=== PATIENT | male | born 1940 | race Caucasian/White ===

== ENCOUNTER 2018-03-18 11:37 | Inpatient (IN) | payer MEDICARE, OTHER ==
[2018-03-18] MEDS ORDERED: ASPIRIN 81 MG TABLET, CHEWABLE PO ONE (12:16)
--- NOTE | 2018-03-18 12:21 | ER Document Report ---
ED General - General Stated Complaint: FALL/RIB PAIN Time Seen by Provider: 03/18/18 11:49 Mode of Arrival: Medic Information source: Patient, Office Notes: Patient presents as a transfer from his primary care provider's office. Patient went to follow-up regarding bronchitis for which he has been treated for for the past 2 weeks. Patient was noted to be in new onset A. fib. Patient does report some left-sided chest pain where he has overlying bruising. Patient states that he has fallen 10 times in the past 8 days. Patient does report nausea and vomiting 6 episodes today. Patient additionally reports left lower quadrant abdominal tenderness that started yesterday. Patient denies any fever or urinary symptoms. Patient denies any head injury or headache. Patient denies any loss of consciousness. Patient's notes from his doctor's office does report that he has had some depression symptoms despite being compliant with his antidepressants. Patient complains of shortness of breath and states that he feels like he is breathing much easier after he was given oxygen per EMS. Patient states that he does not normally wear oxygen. TRAVEL OUTSIDE OF THE [place] IN LAST 30 DAYS: No - HPI Onset: Other - 8 days Onset/Duration: Persistent Quality of pain: Achy Pain Level: 4 Associated symptoms: Chest pain, Nonproductive cough, Nausea, Vomiting, Shortness of breath. denies: Diarrhea, Fever, Headache Exacerbated by: Movement, Coughing, Deep breathing Relieved by: Denies Similar symptoms previously: Yes Recently seen / treated by doctor: Yes - Related Data Allergies/Adverse Reactions: No Known Allergies Allergy (Verified 08/18/12 10:14) Past Medical History - General Information source: Patient, Office - Social History Smoking Status: Current Every Day Smoker Frequency of alcohol use: None Drug Abuse: None Occupation: None Lives with: Spouse/Significant other Family History: Reviewed & Not Pertinent - Past Medical History Cardiac Medical History: Reports: Hx Hypercholesterolemia Denies: Hx Heart Attack, Hx Hypertension Pulmonary Medical History: Reports: Hx Bronchitis, Hx Pneumonia Denies: Hx Asthma Neurological Medical History: Reports: Other. Denies: Hx Cerebrovascular Accident, Hx Seizures GI Medical History: Reports: Hx Hiatal Hernia. Denies: Hx Hepatitis, Hx Ulcer Musculoskeletal Medical History: Reports Other - Chronic back pain Psychiatric Medical History: Reports: Hx Depression, Hx Post Traumatic Stress Disorder Infectious Medical History: Denies: Hx Hepatitis Past Surgical History: Reports: Hx Orthopedic Surgery. Denies: Hx Open Heart Surgery, Hx Pacemaker Review of Systems - Review of Systems Constitutional: Recent illness - Recently treated for pneumonia and then treated for bronchitis over the past 2 weeks. denies: Fever EENT: No symptoms reported Cardiovascular: Chest pain - The left-sided chest where he fell and has overlying bruising Respiratory: Cough, Hurts to breathe, Short of breath Gastrointestinal: Abdominal pain - Left lower quadrant, Vomiting Genitourinary: No symptoms reported. denies: Dysuria Male Genitourinary: No symptoms reported Musculoskeletal: No symptoms reported Skin: Change in color - Exam to the left chest wall Hematologic/Lymphatic: No symptoms reported Neurological/Psychological: No symptoms reported Physical Exam - Vital signs Vitals: Resp BP Pulse Ox 28 H 120/88 H 99 03/18/18 11:44 03/18/18 11:44 03/18/18 11:44 - General General appearance: Alert In distress: None - HEENT Head: Normocephalic, Atraumatic. No: Abrasions, Pina's sign, Ecchymosis, Racoon's eyes Eyes: Normal Conjunctiva: Normal Nasal: Normal Mouth/Lips: Normal Mucous membranes: Normal Neck: Normal, Supple. No: Lymphadenopathy - Respiratory Respiratory status: No respiratory distress Chest status: Tender, Ecchymosis - left anterior chest wall ecchymosis Breath sounds: Nonproductive cough, Rales Chest palpation: Tender, Ecchymosis - Cardiovascular Rhythm: Irregularly irregular Heart sounds: S1 appreciated, S2 appreciated - Abdominal Distension: No distension Bowel sounds: Normal Tenderness: Tender - LLQ Organomegaly: No organomegaly - Back Back: Normal - Extremities General upper extremity: Normal inspection, Normal ROM General lower extremity: Normal inspection, Normal ROM - Neurological Neuro grossly intact: Yes Cognition: Normal Melissa Coma Scale Eye Opening: Spontaneous Melissa Coma Scale Verbal: Oriented Melissa Coma Scale Motor: Obeys Commands Melissa Coma Scale Total: 15 - Psychological Associated symptoms: Anxious - Skin Skin Temperature: Warm Skin Moisture: Dry Skin Color: Ecchymosis - left chest wall Course - Re-evaluation Re-evalutation: 03/18/18 14:[address] Small regarding patient presentation and diagnostic evaluation, agrees with plan for CT imaging of the chest abdomen and pelvis for further evaluation. 03/18/18 17:[address] Small regarding patient's diagnostic test results. Recommends consultation with hospitalist for admission. Did speak with Dr. marcus to clarify results of CT scan. Dr. Marcus states that patient has old right rib fractures but no acute rib fractures. 03/18/18 17:[address] Barroso who agrees to evaluate patient for admission. - Vital Signs Vital signs: Temp Pulse Resp BP Pulse Ox 97.7 F 17 135/67 H 99 03/18/18 18:38 03/18/18 19:00 03/18/18 18:01 03/18/18 19:00 - Laboratory Result Diagrams: 03/18/18 11:52 03/18/18 11:52 Laboratory results interpreted by me: 03/18/18 03/18/18 03/18/18 11:52 11:52 11:52 WBC 10.6 H RBC 3.49 L Hgb 11.4 L Hct 33.1 L RDW 14.8 H Seg Neutrophils % 83.9 H Lymphocytes % 11.6 L Absolute Neutrophils 8.9 H APTT 37.2 H Chloride 109 H Total Bilirubin 1.6 H Direct Bilirubin 0.6 H NT-Pro-B Natriuret Pep Total Protein 5.9 L Albumin 3.4 L TSH Urine Protein Urine Ketones Urine Bilirubin Urine Ascorbic Acid 03/18/18 03/18/18 03/18/18 11:52 11:52 14:49 WBC RBC Hgb Hct RDW Seg Neutrophils % Lymphocytes % Absolute Neutrophils APTT Chloride Total Bilirubin Direct Bilirubin NT-Pro-B Natriuret Pep 2550 H Total Protein Albumin TSH 0.41 L Urine Protein 100 H Urine Ketones 20 H Urine Bilirubin SMALL H Urine Ascorbic Acid 40 H Labs- Entire Visit 03/18/18 03/18/18 03/18/18 11:52 11:52 11:52 WBC 10.6 H RBC 3.49 L Hgb 11.4 L Hct 33.1 L MCV 95 MCH 32.7 MCHC 34.6 RDW 14.8 H Plt Count 172 Seg Neutrophils % 83.9 H Lymphocytes % 11.6 L Monocytes % 3.9 Eosinophils % 0.4 Basophils % 0.2 Absolute Neutrophils 8.9 H Absolute Lymphocytes 1.2 Absolute Monocytes 0.4 Absolute Eosinophils 0.0 Absolute Basophils 0.0 PT 13.1 INR 0.94 APTT 37.2 H Sodium 141.3 Potassium 4.1 Chloride 109 H Carbon Dioxide 25 Anion Gap 7 BUN 16 Creatinine 0.78 Est GFR ( Amer) > 60 Est GFR (Non-Af Amer) > 60 Glucose 101 Calcium 9.1 Magnesium 2.3 Total Bilirubin 1.6 H Direct Bilirubin 0.6 H Neonat Total Bilirubin Not Reportable Neonat Direct Bilirubin Not Reportable Neonat Indirect Bili Not Reportable AST 22 ALT 30 Alkaline Phosphatase 78 Creatine Kinase 66 CK-MB (CK-2) Troponin I NT-Pro-B Natriuret Pep Total Protein 5.9 L Albumin 3.4 L TSH Free T4 Free T3 pg/mL Urine Color Urine Appearance Urine pH Ur Specific Mascot Urine Protein Urine Glucose (UA) Urine Ketones Urine Blood Urine Nitrite Urine Bilirubin Urine Urobilinogen Ur Leukocyte Esterase Urine WBC (Auto) Urine RBC (Auto) Urine Mucus (Auto) Urine Ascorbic Acid 03/18/18 03/18/18 03/18/18 11:52 11:52 11:52 WBC RBC Hgb Hct MCV MCH MCHC RDW Plt Count Seg Neutrophils % Lymphocytes % Monocytes % Eosinophils % Basophils % Absolute Neutrophils Absolute Lymphocytes Absolute Monocytes Absolute Eosinophils Absolute Basophils PT INR APTT Sodium Potassium Chloride Carbon Dioxide Anion Gap BUN Creatinine Est GFR ( Amer) Est GFR (Non-Af Amer) Glucose Calcium Magnesium Total Bilirubin Direct Bilirubin Neonat Total Bilirubin Neonat Direct Bilirubin Neonat Indirect Bili AST ALT Alkaline Phosphatase Creatine Kinase CK-MB (CK-2) 1.68 Troponin I < 0.012 NT-Pro-B Natriuret Pep 2550 H Total Protein Albumin TSH 0.41 L Free T4 1.30 Free T3 pg/mL 3.19 Urine Color Urine Appearance Urine pH Ur Specific Mascot Urine Protein Urine Glucose (UA) Urine Ketones Urine Blood Urine Nitrite Urine Bilirubin Urine Urobilinogen Ur Leukocyte Esterase Urine WBC (Auto) Urine RBC (Auto) Urine Mucus (Auto) Urine Ascorbic Acid 03/18/18 03/18/18 14:49 16:20 WBC RBC Hgb Hct MCV MCH MCHC RDW Plt Count Seg Neutrophils % Lymphocytes % Monocytes % Eosinophils % Basophils % Absolute Neutrophils Absolute Lymphocytes Absolute Monocytes Absolute Eosinophils Absolute Basophils PT INR APTT Sodium Potassium Chloride Carbon Dioxide Anion Gap BUN Creatinine Est GFR ( Amer) Est GFR (Non-Af Amer) Glucose Calcium Magnesium Total Bilirubin Direct Bilirubin Neonat Total Bilirubin Neonat Direct Bilirubin Neonat Indirect Bili AST ALT Alkaline Phosphatase Creatine Kinase CK-MB (CK-2) Troponin I < 0.012 NT-Pro-B Natriuret Pep Total Protein Albumin TSH Free T4 Free T3 pg/mL Urine Color BRIAN Urine Appearance SLIGHTLY-CLOUDY Urine pH 7.0 Ur Specific Mascot 1.028 Urine Protein 100 H Urine Glucose (UA) NEGATIVE Urine Ketones 20 H Urine Blood NEGATIVE Urine Nitrite NEGATIVE Urine Bilirubin SMALL H Urine Urobilinogen NEGATIVE Ur Leukocyte Esterase NEGATIVE Urine WBC (Auto) 0 Urine RBC (Auto) 1 Urine Mucus (Auto) MOD Urine Ascorbic Acid 40 H - Diagnostic Test Radiology reviewed: Reports reviewed Discharge - Discharge Clinical Impression: New onset a-fib, Pulmonary lesion Fall Qualifiers: Encounter type: initial encounter Qualified Code(s): W19.XXXA - Unspecified fall, initial encounter Chest wall contusion Qualifiers: Encounter type: initial encounter Laterality: left Qualified Code(s): S20.212A - Contusion of left front wall of thorax, initial encounter Condition: Fair Disposition: ADMITTED INPATIENT Admitting Provider: Hospitalist Unit Admitted: IMCU
[2018-03-18 12:46] LABS: INTERNATIONAL RATION (INR) 0.94; PROTHROMBIN TIME 13.1 SEC (11.4-15.4)
[2018-03-18 12:47] LABS: PARTIAL THROMBOPLASTIN TIME 37.2 SEC (23.5-35.8)
[2018-03-18 12:50] LABS: ABSOLUTE LYMPHOCYTES (AUTO) 1.2 10^3/uL (0.5-4.7); ABSOLUTE MONOCYTES (AUTO) 0.4 10^3/uL (0.1-1.4); ABSOLUTE NEUT (AUTO) 8.9 10^3/uL (1.7-8.2); BASOPHILS % (AUTO) 0.2 % (0-2); EOSINOPHILS % (AUTO) 0.4 % (0-6); HEMATOCRIT 33.1 % (37.9-51.0); HEMOGLOBIN 11.4 g/dL (13.5-17.0); LYMPHOCYTES % (AUTO) 11.6 % (13-45); MEAN CORPUSCULAR HEMOGLOBIN 32.7 pg (27.0-33.4); MEAN CORPUSCULAR HGB CONC 34.6 g/dL (32.0-36.0); MEAN CORPUSCULAR VOLUME 95 fl (80-97); MONOCYTES % (AUTO) 3.9 % (3-13); PLATELET COUNT 172 10^3/uL (150-450); RED BLOOD COUNT 3.49 10^6/uL (4.35-5.55); RED CELL DISTRIBUTION WIDTH 14.8 % (11.5-14.0); SEGMENTED NEUTROPHILS % (AUTO) 83.9 % (42-78); TOTAL CELLS COUNTED % (AUTO) 100 %; WHITE BLOOD COUNT 10.6 10^3/uL (4.0-10.5)
[2018-03-18 12:58] LABS: ALANINE AMINOTRANSFERASE 30 U/L (21-72); ALBUMIN 3.4 g/dL (3.5-5.0); ALKALINE PHOSPHATASE 78 U/L (38-126); ANION GAP 7 (5-19); ASPARTATE AMINO TRANSFERASE 22 U/L (17-59); BILIRUBIN,DIRECT 0.6 mg/dL (0.0-0.4); BILIRUBIN,TOTAL 1.6 mg/dL (0.2-1.3); BLOOD UREA NITROGEN 16 mg/dL (7-20); CALCIUM 9.1 mg/dL (8.4-10.2); CARBON DIOXIDE 25 mmol/L (22-30); CHLORIDE 109 mmol/L (98-107); CREATINE KINASE 66 U/L (55-170); GLUCOSE 101 mg/dL (75-110); POTASSIUM 4.1 mmol/L (3.6-5.0); SODIUM 141.3 mmol/L (137-145); TOTAL PROTEIN 5.9 g/dL (6.3-8.2)
[2018-03-18 13:10] LABS: CREATINE KINASE MB 1.68 ng/mL (<4.55); NT PRO BNP 2550 pg/mL (<450)
[2018-03-18 13:14] LABS: TROPONIN I < 0.012 ng/mL
--- NOTE | 2018-03-18 13:22 | RADIOLOGY REPORT (SQ) ---
EXAM DESCRIPTION: CHEST SINGLE VIEW COMPLETED DATE/TIME: 03/18/2018 1:06 pm REASON FOR STUDY: fall, cp COMPARISON: None. EXAM PARAMETERS: NUMBER OF VIEWS: One view. TECHNIQUE: Single frontal radiographic view of the chest acquired. RADIATION DOSE: NA LIMITATIONS: None. FINDINGS: LUNGS AND PLEURA: There is some asymmetric increased density in the right lung especially in the right lower lung field. Differential possibilities would include a patchy pneumonic infiltrat e or atelectatic changes. In light of the clinical history the possibility of a pulmonary contusion cannot be excluded. This could also be chronic in nature. No pleural effusions are identified. No pneumothorax is seen. MEDIASTINUM AND HILAR STRUCTURES: No masses. Contour normal. HEART AND VASCULAR STRUCTURES: Heart normal in size. Normal vasculature. BONES: No acute findings. HARDWARE: None in the chest. OTHER: No other significant finding. IMPRESSION: Asymmetric increased density in the right lung as noted above. Differential possibiliti es are as noted above. Other findings as noted above TECHNICAL DOCUMENTATION: JOB ID: [id number] [employer]- All Rights Reserved Reading location - IP/workstation name: [email or web address]
--- NOTE | 2018-03-18 13:23 | EKG REPORT ---
SEVERITY:- ABNORMAL ECG - ATRIAL FIBRILLATION MULTIFORM VENTRICULAR PREMATURE COMPLEXES : Confirmed by: Marco Antonio Rodriguez MD 18-Mar-2018 13:22:58
[2018-03-18] MEDS ORDERED: MORPHINE SULFATE 10 MG/ML INJ IV ONE (14:45)
[2018-03-18] MEDS ORDERED: CEFTRIAXONE INJ 1000 MG VIAL IV ONE (14:47)
--- NOTE | 2018-03-18 15:50 | RADIOLOGY REPORT (SQ) ---
EXAM DESCRIPTION: CT CHEST WITH COMPLETED DATE/TIME: 03/18/2018 3:26 pm REASON FOR STUDY: multiple falls, LLQ pain, L chest wall ecchymosis COMPARISON: Chest x-ray dated 03/18/2018 TECHNIQUE: CT scan of the chest performed using helical scanning technique with dynamic intravenous contrast injection. Images reviewed with lung, soft tissue and bone windows. Reconstructed coronal and sagittal MPR and MIP images reviewed. All images stored on PACS. All CT scanners at this facility use dose modulation, iterative reconstruction, and/or weight based d osing when appropriate to reduce radiation dose to as low as reasonably achievable (ALARA). [facility]: Dose Right [facility]: CareDose [facility]: Dose Right [facility]: Teradose 4D [facility]: Smart [employer] CONTRAST TYPE AND DOSE: 80 mL Omnipaque 350 RENAL FUNCTION: Creatinine 0.78 RADIATION DOSE: . LIMITATIONS: None. FINDINGS: LUNGS AND PLEURA: Fairly diffuse patchy and confluent airspace densities are identified th roughout the right lung which correlate with the chest x-ray findings. Similar changes are identifie d in the posterior sulcus on the left. Differential possibilities would include pulmonary edema vers us pulmonary hemorrhage. Diffuse pneumonic infiltrate cannot be completely excluded. No pleural eff usions are identified. No pneumothorax is seen HILAR AND MEDIASTINAL STRUCTURES: No identified masses or abnormal nodes. HEART AND VASCULAR STRUCTURES: No aneurysm or dissection. No central pulmonary emboli. No pericardi al effusion. HARDWARE: None in the chest. UPPER ABDOMEN: See results under abdominal CT scan THYROID AND OTHER SOFT TISSUES: No masses. No adenopathy. BONES: No acute fractures are identified. Couple right rib fractures are identified including an all ununited right rib fracture in the upper thorax posteriorly. OTHER: No other significant finding. IMPRESSION: Fairly diffuse patchy and confluent airspace densities are identified throughout the rig ht lung and in the posterior sulcus on the left as noted above. Differential possibilities would inc lude pulmonary edema versus pulmonary hemorrhage. The possibility of a developing ARDS type pattern cannot be excluded. Clinical correlation is recommended. Other findings as noted above. TECHNICAL DOCUMENTATION: JOB ID: [id number] Quality ID # [id number]: Final reports with documentation of one or more dose reduction techniques (e.g., Au tomated exposure control, adjustment of the mA and/or kV according to patient size, use of iterative reconstruction technique) 2010 [employer] All Rights Reserved Reading location - IP/workstation name: [email or web address]
--- NOTE | 2018-03-18 15:53 | RADIOLOGY REPORT (SQ) ---
EXAM DESCRIPTION: CT ABD/PELVIS WITH IV ONLY COMPLETED DATE/TIME: 03/18/2018 3:26 pm REASON FOR STUDY: multiple falls, LLQ pain, L chest wall ecchymosis COMPARISON: None. TECHNIQUE: CT scan of the abdomen and pelvis performed using helical scanning technique with dynamic intravenous contrast injection. No oral contrast. Images reviewed with lung, soft tissue, and bone windows. Reconstructed coronal and sagittal MPR images reviewed. Delayed images for evaluation of the urinary system also acquired. All images stored on PACS. All CT scanners at this facility use dose modulation, iterative reconstruction, and/or weight based d osing when appropriate to reduce radiation dose to as low as reasonably achievable (ALARA). [facility]: Dose Right [facility]: CareDose [facility]: Dose Right [facility]: Teradose 4D [facility]: [employer] CONTRAST TYPE AND DOSE: contrast/concentration: Isovue 350.00 mg/ml; Total Contrast Delivered: 89.0 ml; Total Saline Delivered: 70.0 ml RENAL FUNCTION: BUN 16 creatinine 0.8 RADIATION DOSE: CT Rad equipment meets quality standard of care and radiation dose reduction techniq ues were employed. CTDIvol: 11.0 - 15.7 mGy. DLP: 1693 mGy-cm.. LIMITATIONS: None. FINDINGS: LOWER CHEST: See separate report of the CT of the chest. LIVER: Normal size. No masses. No dilated ducts. SPLEEN: Normal size. No focal lesions. PANCREAS: No masses. No significant calcifications. No adjacent inflammation or peripancreatic fluid collections. Pancreatic duct not dilated. GALLBLADDER: No identified stones by CT criteria. No inflammatory changes to suggest cholecystitis. ADRENAL GLANDS: No significant masses or asymmetry. RIGHT KIDNEY AND URETER: No solid masses. No significant calcifications. No hydronephrosis or hyd roureter. LEFT KIDNEY AND URETER: No solid masses. Small nonobstructing middle calyceal calculus. No hydron ephrosis or hydroureter. AORTA AND VESSELS: No aneurysm. No dissection. Renal arteries, SMA, celiac without stenosis. RETROPERITONEUM: No retroperitoneal adenopathy, hemorrhage or masses. BOWEL AND PERITONEAL CAVITY: Mild diverticulosis with no acute inflammatory changes. APPENDIX: Not identified. PELVIS: No mass. No free fluid. Normal bladder. ABDOMINAL WALL: No masses. No hernias. BONES: Scoliosis. Degenerative disc changes. Anterolisthesis of L4 on L5. OTHER: No other significant finding. IMPRESSION: Mild diverticulosis coli. Osseous findings as described. No acute findings in the abdo men or pelvis. TECHNICAL DOCUMENTATION: JOB ID: [id number] Quality ID # [id number]: Final reports with documentation of one or more dose reduction techniques (e.g., Au tomated exposure control, adjustment of the mA and/or kV according to patient size, use of iterative reconstruction technique) 2010 [employer] All Rights Reserved Reading location - IP/workstation name: [email or web address]
[2018-03-18 15:54] LABS: FREE T3 3.19 pg/mL (2.77-5.27); FREE T4 (FREE THYROXINE) 1.3 ng/dL (0.78-2.19)
[2018-03-18 16:31] LABS: APPEARANCE,URINE SLIGHTLY-CLOUDY; BILIRUBIN,URINE SMALL (NEGATIVE); COLOR,URINE AMBER; GLUCOSE, URINE NEGATIVE (NEGATIVE); KETONES,URINE 20 mg/dL (NEGATIVE); LEUKOCYTE ESTERASE,URINE NEGATIVE (NEGATIVE); NITRITE,URINE NEGATIVE (NEGATIVE); PROTEIN,URINE 100 mg/dL (NEGATIVE); URINE SPECIFIC GRAVITY 1.028; UROBILINOGEN,URINE NEGATIVE mg/dL (<2.0)
--- NOTE | 2018-03-18 16:31 | PSYCHOLOGICAL NOTE ---
Psych Note - Psych Note Psych Note: Reason for Consult: depression Patient reports that he is doing well. He confirms he has had some depression. He reports he has diagnosis of PTSD. Patient reminisced on his time in [place] and disclosed events some of the events that resulted in his PTSD. HE reports his year he will be 52 years and disclosed how much his means to him. He reports he has been more depressed lately because he resent suffered to loss of his [id number] and his and surgery and during the recovery suffered a heart attack (she survived) and his own medical issues. He disclosed that while is has been depressed he has been more aggravated about his medical because he feels the doctors do not communicate and just run tests "and I never get anything...no results...no paperwork." He reports he has had multiple doctors and feels like they just keep doing the same things over again because they don't want to take the results from previous tests "and nothing is getting done...and they still have not told me anything." He confirms he has a loving family but requests no visitors; "I want to rest and when the doctor comes in, I want to be able to hear what they are saying...I don't want them to worry and fuss over me." Patient is alert and orientated to person, place, time and circumstance. Mood with euthymic with congruent affect. Patient denies suicidal and homicidal ideation. Delusions are absent and behaviours are congruent with an intact reality based presentation ie organized and linear thought processes. eye contact was well maintained. conversational speech was within normal rate, tone and prosody. Intellectual abilities appear to be average range. attention and concentration are good. insight, judgment and impulse control is good. 311 (F32.9) unspecified depressive disorder 309.81 (F43.10) posttraumatic stress disorder Impression/plan:Patient is cleared from acute psychiatric services. Patient disclosed situational depression surrounding his medical situation and the health of his . He reports he is more aggravated with doctors because of feeling that he is not getting information for tests and having multiple doctor changes and them having him retested. Patient reports he has a mental health provider with [facility] and has worked with them for a long time. Patient is recommenced to continue working with his outpatient provider. Dr. Bucio was consulted on the care and management of this patient; attending physicians is is in agreement with recommendations and disposition.
[2018-03-18] MEDS ORDERED: RINGERS SOLUTION,LACTATED 1,000 ML IV ONE (16:37)
[2018-03-18] MEDS ORDERED: LIDOCAINE 5% (700 MG) TRANSDERMAL ADH..PATCH TP ONE (17:20)
[2018-03-18] MEDS: RINGERS SOLUTION,LACTATED 1,000 ML IV PRN ×2 (17:27→22:32)
[2018-03-18] MEDS ORDERED: DIAZEPAM 5 MG TABLET PO PRN (17:51)
[2018-03-18] MEDS ORDERED: BUPROPION HCL 300 MG PO SCH (18:00)
[2018-03-18] MEDS ORDERED: CITALOPRAM HYDROBROMIDE 20 MG PO SCH (18:00)
[2018-03-18] MEDS: DOCUSATE SODIUM 100 MG CAPSULE PO SCH (18:15)
[2018-03-18] MEDS ORDERED: ALBUTEROL SULFATE 0.083% NEB 2.5 MG/3 ML AMPUL NEB PRN (18:23)
[2018-03-18] MEDS: TAMSULOSIN HCL 0.4 MG CAP.SR.24H PO SCH (18:26)
[2018-03-18] MEDS: FERROUS SULFATE 325 MG TABLET PO SCH (18:26)
--- NOTE | 2018-03-18 18:57 | PDOC H&P ---
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 He states that his balance has not been good for a long time, but that lately it has been worse. He also states that he has a recent history of bilateral pneumonia. He states that he thinks he has bronchitis now. He smokes "cigarillos". He states that he only smokes 2-3 of them a week. This week he states that he has fallen onto his left side twice both times falling on his right ribs. He complains of severe pleuritic chest pain and shortness of breath. He denies history of lung problems and states that he does not require oxygen at home. He also has had some problems with PTSD and depression. Lately the depression has been related to his medical problems and feeling that senior medical writer are not being honest with him. The patient' s speech is very tangential and it is very difficult to understand. In the ED the patient is found to have new onset of atrial fibrillation that is rate controlled. CTA of the chest abdomen and pelvis were performed that demonstrated patchy interstitial opacities on the right side of the chest that is described as being either pulmonary edema or pulmonary hemorrhage/contusion. The patient is currently saturating 97% on 3 L. He does not use O2 at home. Past Medical History Cardiac Medical History: Denies: Myocardial Infarction, Hypertension Pulmonary Medical History: Denies: Asthma Neurological Medical History: Reports: Other - cerebellar ataxia, peripheral neuropathy Denies: Seizures GI Medical History: Reports: Hiatal Hernia Denies: Hepatitis Musculoskeltal Medical History: Reports: Arthritis - Right sided TKA. Psychiatric Medical History: Reports: Depression, Post Traumatic Stress Disorder Hematology: Reports: Anemia - ON IRON Denies: Sickle Cell Disease Past Surgical History Past Surgical History: Denies: Pacemaker Social History Smoking Status: Current Some Day Smoker Past Social History Note: Pt states that he has not used alcohol in many years. He denies recreational drug use. Family History Family History: Reviewed & Not Pertinent Parental Family History Reviewed: Yes Children Family History Reviewed: Yes Sibling(s) Family History Reviewed.: Yes Medication/Allergy Allergies/Adverse Reactions: No Known Allergies Allergy (Verified 08/18/12 10:14) Review of Systems Constitutional: PRESENT: weakness. ABSENT: fever(s), night sweats, weight loss Eyes: ABSENT: visual disturbances Ears: ABSENT: hearing changes Nose, Mouth, and Throat: ABSENT: mouth pain, sore throat, vertigo Cardiovascular: PRESENT: chest pain - Left sided, pleuritic. Respiratory: PRESENT: dyspnea. ABSENT: cough, sputum Gastrointestinal: PRESENT: abdominal pain - left sided lower quadrant, left flank, left upper quadrant., nausea, vomiting Integumentary: PRESENT: other - Positive for ecchymoses over the left side of the chest and abdomen. Neurological: PRESENT: abnormal speech - chronic per patient, frequent falls - chronic dysequilibrium, paresthesias - chronic Psychiatric: PRESENT: depression. ABSENT: anxiety Physical Exam Vital Signs: Temp Pulse Resp BP Pulse Ox 98.4 F 17 122/62 99 03/18/18 11:49 03/18/18 15:01 03/18/18 15:01 03/18/18 15:01 Intake & Output 03/17/18 03/18/18 03/19/18 06:59 06:59 06:59 Weight 82.4 kg General appearance: PRESENT: cooperative, disheveled, mild distress - left sided chest pain, thin Head exam: PRESENT: atraumatic, normocephalic Eye exam: PRESENT: EOMI, PERRLA. ABSENT: conjunctival injection, scleral icterus Ear exam: PRESENT: normal external ear exam. ABSENT: bleeding, drainage Mouth exam: PRESENT: dry mucosa, neck supple, tongue midline Throat exam: ABSENT: tonsillar erythema, tonsillar exudate, tonsillogmegaly Neck exam: ABSENT: JVD, lymphadenopathy, tenderness, thyromegaly Respiratory exam: PRESENT: chest wall tenderness, unlabored. ABSENT: rales, rhonchi, wheezes Cardiovascular exam: PRESENT: irregular rhythm. ABSENT: gallop, rubs, systolic murmur Pulses: PRESENT: other - diminished distal pulses GI/Abdominal exam: PRESENT: normal bowel sounds, soft. ABSENT: distended, guarding, hernia, mass, organolmegaly, tenderness Extremities exam: ABSENT: clubbing, pedal edema, tenderness Musculoskeletal exam: PRESENT: normal inspection. ABSENT: deformity, dislocation, tenderness Neurological exam: PRESENT: alert, awake, oriented to person, oriented to place , oriented to time, oriented to situation, ataxia, CN II-XII grossly intact. ABSENT: motor sensory deficit Psychiatric exam: PRESENT: anxious, unusual affect Skin exam: PRESENT: dry, intact, warm Results Laboratory Results: 03/18/18 11:52 03/18/18 11:52 03/18/18 03/18/18 03/18/18 11:52 11:52 11:52 WBC 10.6 H RBC 3.49 L Hgb 11.4 L Hct 33.1 L MCV 95 MCH 32.7 MCHC 34.6 RDW 14.8 H Plt Count 172 Seg Neutrophils % 83.9 H Lymphocytes % 11.6 L Monocytes % 3.9 Eosinophils % 0.4 Basophils % 0.2 Absolute Neutrophils 8.9 H Absolute Lymphocytes 1.2 Absolute Monocytes 0.4 Absolute Eosinophils 0.0 Absolute Basophils 0.0 Sodium 141.3 Potassium 4.1 Chloride 109 H Carbon Dioxide 25 Anion Gap 7 BUN 16 Creatinine 0.78 Est GFR ( Amer) > 60 Est GFR (Non-Af Amer) > 60 Glucose 101 Calcium 9.1 Magnesium 2.3 Total Bilirubin 1.6 H AST 22 ALT 30 Alkaline Phosphatase 78 Total Protein 5.9 L Albumin 3.4 L TSH 0.41 L Free T4 Free T3 pg/mL Urine Color Urine Appearance Urine pH Ur Specific [place] Urine Protein Urine Glucose (UA) Urine Ketones Urine Blood Urine Nitrite Ur Leukocyte Esterase Urine WBC (Auto) Urine RBC (Auto) 03/18/18 03/18/18 11:52 14:49 WBC RBC Hgb Hct MCV MCH MCHC RDW Plt Count Seg Neutrophils % Lymphocytes % Monocytes % Eosinophils % Basophils % Absolute Neutrophils Absolute Lymphocytes Absolute Monocytes Absolute Eosinophils Absolute Basophils Sodium Potassium Chloride Carbon Dioxide Anion Gap BUN Creatinine Est GFR ( Amer) Est GFR (Non-Af Amer) Glucose Calcium Magnesium Total Bilirubin AST ALT Alkaline Phosphatase Total Protein Albumin TSH Free T4 1.30 Free T3 pg/mL 3.19 Urine Color BRIAN Urine Appearance SLIGHTLY-CLOUDY Urine pH 7.0 Ur Specific [place] 1.028 Urine Protein 100 H Urine Glucose (UA) NEGATIVE Urine Ketones 20 H Urine Blood NEGATIVE Urine Nitrite NEGATIVE Ur Leukocyte Esterase NEGATIVE Urine WBC (Auto) 0 Urine RBC (Auto) 1 03/18/18 03/18/18 03/18/18 11:52 11:52 16:20 Creatine Kinase 66 CK-MB (CK-2) 1.68 Troponin I < 0.012 < 0.012 NT-Pro-B Natriuret Pep 2550 H 03/18/18 03/18/18 03/18/18 11:52 11:52 11:52 WBC 10.6 H RBC 3.49 L Hgb 11.4 L Hct 33.1 L MCV 95 MCH 32.7 MCHC 34.6 RDW 14.8 H Plt Count 172 Seg Neutrophils % 83.9 H Lymphocytes % 11.6 L Monocytes % 3.9 Eosinophils % 0.4 Basophils % 0.2 Absolute Neutrophils 8.9 H Absolute Lymphocytes 1.2 Absolute Monocytes 0.4 Absolute Eosinophils 0.0 Absolute Basophils 0.0 PT 13.1 INR 0.94 APTT 37.2 H Sodium 141.3 Potassium 4.1 Chloride 109 H Carbon Dioxide 25 Anion Gap 7 BUN 16 Creatinine 0.78 Est GFR (Non-Af Amer) > 60 Glucose 101 Calcium 9.1 Magnesium 2.3 Total Bilirubin 1.6 H Direct Bilirubin 0.6 H AST 22 ALT 30 Alkaline Phosphatase 78 Creatine Kinase 66 CK-MB (CK-2) Troponin I NT-Pro-B Natriuret Pep Total Protein 5.9 L Albumin 3.4 L TSH Free T4 Free T3 pg/mL Urine Color Urine Appearance Urine pH Ur Specific [place] Urine Protein Urine Glucose (UA) Urine Ketones Urine Blood Urine Nitrite Urine Bilirubin Urine Urobilinogen Ur Leukocyte Esterase Urine WBC (Auto) Urine RBC (Auto) Urine Mucus (Auto) Urine Ascorbic Acid 03/18/18 03/18/18 03/18/18 11:52 11:52 11:52 WBC RBC Hgb Hct MCV MCH MCHC RDW Plt Count Seg Neutrophils % Lymphocytes % Monocytes % Eosinophils % Basophils % Absolute Neutrophils Absolute Lymphocytes Absolute Monocytes Absolute Eosinophils Absolute Basophils PT INR APTT Sodium Potassium Chloride Carbon Dioxide Anion Gap BUN Creatinine Est GFR (Non-Af Amer) Glucose Calcium Magnesium Total Bilirubin Direct Bilirubin AST ALT Alkaline Phosphatase Creatine Kinase CK-MB (CK-2) 1.68 Troponin I < 0.012 NT-Pro-B Natriuret Pep 2550 H Total Protein Albumin TSH 0.41 L Free T4 1.30 Free T3 pg/mL 3.19 Urine Color Urine Appearance Urine pH Ur Specific [place] Urine Protein Urine Glucose (UA) Urine Ketones Urine Blood Urine Nitrite Urine Bilirubin Urine Urobilinogen Ur Leukocyte Esterase Urine WBC (Auto) Urine RBC (Auto) Urine Mucus (Auto) Urine Ascorbic Acid 03/18/18 03/18/18 14:49 16:20 WBC RBC Hgb Hct MCV MCH MCHC RDW Plt Count Seg Neutrophils % Lymphocytes % Monocytes % Eosinophils % Basophils % Absolute Neutrophils Absolute Lymphocytes Absolute Monocytes Absolute Eosinophils Absolute Basophils PT INR APTT Sodium Potassium Chloride Carbon Dioxide Anion Gap BUN Creatinine Est GFR (Non-Af Amer) Glucose Calcium Magnesium Total Bilirubin Direct Bilirubin AST ALT Alkaline Phosphatase Creatine Kinase CK-MB (CK-2) Troponin I < 0.012 NT-Pro-B Natriuret Pep Total Protein Albumin TSH Free T4 Free T3 pg/mL Urine Color BRIAN Urine Appearance SLIGHTLY-CLOUDY Urine pH 7.0 Ur Specific [place] 1.028 Urine Protein 100 H Urine Glucose (UA) NEGATIVE Urine Ketones 20 H Urine Blood NEGATIVE Urine Nitrite NEGATIVE Urine Bilirubin SMALL H Urine Urobilinogen NEGATIVE Ur Leukocyte Esterase NEGATIVE Urine WBC (Auto) 0 Urine RBC (Auto) 1 Urine Mucus (Auto) MOD Urine Ascorbic Acid 40 H Impressions: Chest X-Ray 03/18/18 12:17 IMPRESSION: Asymmetric increased density in the right lung as noted above. Differential possibilities are as noted above. Other findings as noted above Abdomen/Pelvis CT 03/18/18 14:44 IMPRESSION: Mild diverticulosis coli. Osseous findings as described. No acute findings in the abdomen or pelvis. Chest CT 03/18/18 14:44 IMPRESSION: Fairly diffuse patchy and confluent airspace densities are identified throughout the right lung and in the posterior sulcus on the left as noted above. Differential possibilities would include pulmonary edema versus pulmonary hemorrhage. The possibility of a developing ARDS type pattern cannot be excluded. Clinical correlation is recommended. Other findings as noted above. Assessment & Plan - Diagnosis (1) Chest wall contusion Qualifiers: Encounter type: initial encounter Laterality: left Qualified Code(s): S20.212A - Contusion of left front wall of thorax, initial encounter (2) Fall Qualifiers: Encounter type: initial encounter Qualified Code(s): W19.XXXA - Unspecified fall, initial encounter (3) New onset a-fib Is this a current diagnosis for this admission?: Yes (4) Pulmonary lesion Is this a current diagnosis for this admission?: Yes (6) Peripheral neuropathy Is this a current diagnosis for this admission?: Yes - Time Time Spent: 50 to 70 Minutes Medications reviewed and adjusted accordingly: Yes - Inpatient Certification Based on my medical assessment, after consideration of the patient's comorbidities, presenting symptoms, or acuity I expect that the services needed warrant INPATIENT care.: Yes I certify that my determination is in accordance with my understanding of Medicare's requirements for reasonable and necessary INPATIENT services [42 CFR 412.3e].: Yes Medical Necessity: Significant Comorbidiites Make Outpatient Treatment Too Risky , Need Close Monitoring Due to Risk of Patient Decompensation, Risk of Complication if Not Cared For in Hospital - Plan Summary Plan Summary: The patient will be admitted to a telemetry bed. He is in atrial fibrillation, but his rate is controlled. He is not currently a candidate for anticoagulation given the risk of pulmonary hemorrhage/contusion and his frequent falls. antithrombotics and anticoagulants will be avoided. The patient will have prn nebulizer treatment, pain control, serial CBC's and pulmonary consult. He will be continued on his home medications as possible. Once his respiratory status is stable I will consult PT/OT to evaluate him. I feel that this patient will likely not be able to return to his home situation at the end of this inpatient stay.
[2018-03-18 20:06] LABS: ABSOLUTE EOSINOPHILS # (AUTO) 0.1 10^3/uL (0.0-0.6); ABSOLUTE LYMPHOCYTES (AUTO) 1.7 10^3/uL (0.5-4.7); ABSOLUTE MONOCYTES (AUTO) 0.4 10^3/uL (0.1-1.4); ABSOLUTE NEUT (AUTO) 6.9 10^3/uL (1.7-8.2); BASOPHILS % (AUTO) 0.2 % (0-2); EOSINOPHILS % (AUTO) 1.5 % (0-6); HEMOGLOBIN 11.6 g/dL (13.5-17.0); LYMPHOCYTES % (AUTO) 18.6 % (13-45); MEAN CORPUSCULAR HEMOGLOBIN 32.7 pg (27.0-33.4); MEAN CORPUSCULAR VOLUME 96 fl (80-97); MONOCYTES % (AUTO) 4.3 % (3-13); PLATELET COUNT 181 10^3/uL (150-450); RED BLOOD COUNT 3.54 10^6/uL (4.35-5.55); RED CELL DISTRIBUTION WIDTH 14.7 % (11.5-14.0); SEGMENTED NEUTROPHILS % (AUTO) 75.4 % (42-78); TOTAL CELLS COUNTED % (AUTO) 100 %; WHITE BLOOD COUNT 9.1 10^3/uL (4.0-10.5)
[2018-03-18] MEDS ORDERED: ARIPIPRAZOLE 20 MG PO SCH (22:00)
[2018-03-18] MEDS: SIMVASTATIN 10 MG TABLET PO SCH (22:28)
[2018-03-18] MEDS: ARIPIPRAZOLE 5 MG TABLET PO SCH (22:29)
[2018-03-18] MEDS: BUPROPION HCL 75 MG TABLET PO SCH (22:29)
[2018-03-18] MEDS ORDERED: FLUTICASONE/SALMETEROL DISKUS 250-50 MCG/DOSE IH ONE (22:53)
[2018-03-18] MEDS: FLUTICASONE/SALMETEROL DISKUS 250-50 MCG/DOSE IH SCH (23:04)
[2018-03-18] MEDS: MORPHINE SULFATE 10 MG/ML INJ IV PRN (23:12)
[2018-03-19 05:23] LABS: ABSOLUTE EOSINOPHILS # (AUTO) 0.1 10^3/uL (0.0-0.6); ABSOLUTE LYMPHOCYTES (AUTO) 1.4 10^3/uL (0.5-4.7); ABSOLUTE MONOCYTES (AUTO) 0.5 10^3/uL (0.1-1.4); ABSOLUTE NEUT (AUTO) 4.6 10^3/uL (1.7-8.2); BASOPHILS % (AUTO) 0.2 % (0-2); EOSINOPHILS % (AUTO) 1.7 % (0-6); HEMATOCRIT 28.3 % (37.9-51.0); HEMOGLOBIN 9.9 g/dL (13.5-17.0); LYMPHOCYTES % (AUTO) 20.8 % (13-45); MEAN CORPUSCULAR HEMOGLOBIN 33.2 pg (27.0-33.4); MEAN CORPUSCULAR VOLUME 95 fl (80-97); MONOCYTES % (AUTO) 7.9 % (3-13); PLATELET COUNT 139 10^3/uL (150-450); RED BLOOD COUNT 2.98 10^6/uL (4.35-5.55); RED CELL DISTRIBUTION WIDTH 14.4 % (11.5-14.0); SEGMENTED NEUTROPHILS % (AUTO) 69.4 % (42-78); TOTAL CELLS COUNTED % (AUTO) 100 %; WHITE BLOOD COUNT 6.6 10^3/uL (4.0-10.5)
[2018-03-19 05:34] LABS: INTERNATIONAL RATION (INR) 0.97; PROTHROMBIN TIME 13.4 SEC (11.4-15.4)
[2018-03-19 05:50] LABS: ALANINE AMINOTRANSFERASE 31 U/L (21-72); ALKALINE PHOSPHATASE 71 U/L (38-126); ANION GAP 6 (5-19); ASPARTATE AMINO TRANSFERASE 20 U/L (17-59); BILIRUBIN,DIRECT 0.3 mg/dL (0.0-0.4); BILIRUBIN,TOTAL 0.9 mg/dL (0.2-1.3); BLOOD UREA NITROGEN 15 mg/dL (7-20); CALCIUM 8.6 mg/dL (8.4-10.2); CARBON DIOXIDE 26 mmol/L (22-30); CHLORIDE 109 mmol/L (98-107); CREATINE KINASE 71 U/L (55-170); GLUCOSE 98 mg/dL (75-110); POTASSIUM 4.1 mmol/L (3.6-5.0); SODIUM 140.5 mmol/L (137-145); TOTAL PROTEIN 5.6 g/dL (6.3-8.2)
[2018-03-19 05:54] LABS: NT PRO BNP 1700 pg/mL (<450)
[2018-03-19 05:59] LABS: TROPONIN I < 0.012 ng/mL
[2018-03-19] MEDS: CITALOPRAM HYDROBROMIDE 20 MG TABLET PO SCH (09:12)
[2018-03-19] MEDS: BUPROPION HCL 75 MG TABLET PO SCH ×2 (09:12→21:37)
[2018-03-19] MEDS: DOCUSATE SODIUM 100 MG CAPSULE PO SCH ×2 (09:12→17:22)
[2018-03-19] MEDS: FLUTICASONE/SALMETEROL DISKUS 250-50 MCG/DOSE IH SCH ×2 (09:13→21:39)
[2018-03-19] MEDS: MORPHINE SULFATE 10 MG/ML INJ IV PRN (09:13)
[2018-03-19] MEDS: FERROUS SULFATE 325 MG TABLET PO SCH (09:13)
[2018-03-19] MEDS: TAMSULOSIN HCL 0.4 MG CAP.SR.24H PO SCH (09:13)
--- NOTE | 2018-03-19 10:15 | EKG REPORT ---
SEVERITY:- ABNORMAL ECG - ATRIAL FIBRILLATION BORDERLINE RIGHT AXIS DEVIATION LOW VOLTAGE IN FRONTAL LEADS : Confirmed by: Marco Antonio Rodriguez MD 19-Mar-2018 10:14:49
[2018-03-19 13:27] LABS: ABSOLUTE EOSINOPHILS # (AUTO) 0.1 10^3/uL (0.0-0.6); ABSOLUTE MONOCYTES (AUTO) 0.4 10^3/uL (0.1-1.4); ABSOLUTE NEUT (AUTO) 5.4 10^3/uL (1.7-8.2); BASOPHILS % (AUTO) 0.1 % (0-2); EOSINOPHILS % (AUTO) 1.7 % (0-6); HEMATOCRIT 29.1 % (37.9-51.0); HEMOGLOBIN 10.1 g/dL (13.5-17.0); LYMPHOCYTES % (AUTO) 13.8 % (13-45); MEAN CORPUSCULAR HEMOGLOBIN 33.1 pg (27.0-33.4); MEAN CORPUSCULAR HGB CONC 34.8 g/dL (32.0-36.0); MEAN CORPUSCULAR VOLUME 95 fl (80-97); MONOCYTES % (AUTO) 6.4 % (3-13); PLATELET COUNT 159 10^3/uL (150-450); RED BLOOD COUNT 3.06 10^6/uL (4.35-5.55); RED CELL DISTRIBUTION WIDTH 14.5 % (11.5-14.0); TOTAL CELLS COUNTED % (AUTO) 100 %; WHITE BLOOD COUNT 6.9 10^3/uL (4.0-10.5)
[2018-03-19] MEDS: ONDANSETRON HCL INJ/PF 4 MG/2 ML SDV IV PRN ×2 (15:17→21:36)
[2018-03-19] MEDS: RINGERS SOLUTION,LACTATED 1,000 ML IV PRN (16:05)
--- NOTE | 2018-03-19 17:26 | PDOC PROGRESS REPORT ---
Subjective Progress Note for:: 03/19/18 Subjective:: The patient is resting comfortably. No new complaints. Reason For Visit: PULMONARY HEMORRHAGE,FALLS,RECENT DIAGNOSIS OF Physical Exam Vital Signs: Temp Pulse Resp BP Pulse Ox 98.6 F 85 20 157/80 H 96 03/19/18 15:06 03/19/18 15:06 03/19/18 15:06 03/19/18 15:06 03/19/18 15:06 Intake & Output 03/18/18 03/19/18 03/20/18 06:59 06:59 06:59 Intake Total 1092 1275 Output Total 250 Balance 842 1275 Weight 87.3 kg General appearance: PRESENT: no acute distress, cooperative Respiratory exam: PRESENT: other - No increased work of breathing.. ABSENT: rales, rhonchi, wheezes Cardiovascular exam: PRESENT: RRR, other - No lateral PMI. No thrills.. ABSENT : gallop, rubs, systolic murmur Pulses: PRESENT: other - Diminished distal pulses. GI/Abdominal exam: PRESENT: normal bowel sounds, soft. ABSENT: hernia, mass, organolmegaly, tenderness Extremities exam: PRESENT: pedal edema. ABSENT: clubbing, tenderness Musculoskeletal exam: PRESENT: normal inspection. ABSENT: deformity, tenderness Neurological exam: PRESENT: alert, awake, oriented to person, oriented to place , oriented to time, oriented to situation, CN II-XII grossly intact. ABSENT: motor sensory deficit Skin exam: PRESENT: dry, intact, warm Results Laboratory Results: 03/19/18 13:09 03/19/18 04:52 03/18/18 03/19/18 03/19/18 19:30 04:52 04:52 WBC 9.1 6.6 RBC 3.54 L 2.98 L Hgb 11.6 L 9.9 L Hct 34.0 L 28.3 L MCV 96 95 MCH 32.7 33.2 MCHC 34.0 35.0 RDW 14.7 H 14.4 H Plt Count 181 139 L Seg Neutrophils % 75.4 69.4 Lymphocytes % 18.6 20.8 Monocytes % 4.3 7.9 Eosinophils % 1.5 1.7 Basophils % 0.2 0.2 Absolute Neutrophils 6.9 4.6 Absolute Lymphocytes 1.7 1.4 Absolute Monocytes 0.4 0.5 Absolute Eosinophils 0.1 0.1 Absolute Basophils 0.0 0.0 Sodium 140.5 Potassium 4.1 Chloride 109 H Carbon Dioxide 26 Anion Gap 6 BUN 15 Creatinine 0.72 Est GFR ( Amer) > 60 Est GFR (Non-Af Amer) > 60 Glucose 98 Calcium 8.6 Magnesium 2.1 Total Bilirubin 0.9 AST 20 ALT 31 Alkaline Phosphatase 71 Total Protein 5.6 L Albumin 3.0 L 03/19/18 13:09 WBC 6.9 RBC 3.06 L Hgb 10.1 L Hct 29.1 L MCV 95 MCH 33.1 MCHC 34.8 RDW 14.5 H Plt Count 159 Seg Neutrophils % 78.0 Lymphocytes % 13.8 Monocytes % 6.4 Eosinophils % 1.7 Basophils % 0.1 Absolute Neutrophils 5.4 Absolute Lymphocytes 1.0 Absolute Monocytes 0.4 Absolute Eosinophils 0.1 Absolute Basophils 0.0 Sodium Potassium Chloride Carbon Dioxide Anion Gap BUN Creatinine Est GFR ( Amer) Est GFR (Non-Af Amer) Glucose Calcium Magnesium Total Bilirubin AST ALT Alkaline Phosphatase Total Protein Albumin 03/18/18 03/18/18 03/19/18 19:30 23:49 04:52 Creatine Kinase Troponin I < 0.012 < 0.012 < 0.012 NT-Pro-B Natriuret Pep 1700 H 03/19/18 04:52 Creatine Kinase 71 Troponin I NT-Pro-B Natriuret Pep Impressions: Chest X-Ray 03/18/18 12:17 IMPRESSION: Asymmetric increased density in the right lung as noted above. Differential possibilities are as noted above. Other findings as noted above Abdomen/Pelvis CT 03/18/18 14:44 IMPRESSION: Mild diverticulosis coli. Osseous findings as described. No acute findings in the abdomen or pelvis. Chest CT 03/18/18 14:44 IMPRESSION: Fairly diffuse patchy and confluent airspace densities are identified throughout the right lung and in the posterior sulcus on the left as noted above. Differential possibilities would include pulmonary edema versus pulmonary hemorrhage. The possibility of a developing ARDS type pattern cannot be excluded. Clinical correlation is recommended. Other findings as noted above. Assessment & Plan - Diagnosis (1) Chest wall contusion Qualifiers: Encounter type: initial encounter Laterality: left Qualified Code(s): S20.212A - Contusion of left front wall of thorax, initial encounter Is this a current diagnosis for this admission?: Yes Plan: Avoid anticoagulants and antithrombotics. Pain control and oxygen supplementation. (2) Fall Qualifiers: Encounter type: initial encounter Qualified Code(s): W19.XXXA - Unspecified fall, initial encounter Is this a current diagnosis for this admission?: Yes Plan: The patient will need PT/OT and probably placement at discharged. (3) New onset a-fib Is this a current diagnosis for this admission?: Yes Plan: The rate is controlled. Due to the patient's likely pulmonary hemorrhage vs contusion, and his recent history of frequent falls the patient will not be started on anticoagulation. (4) Cerebellar ataxia Is this a current diagnosis for this admission?: Yes Plan: Likely due to history of severe alcohol abuse. (5) Peripheral neuropathy Is this a current diagnosis for this admission?: Yes (6) Rib fractures Qualifiers: Rib fracture type: multiple ribs Fracture type: closed Is this a current diagnosis for this admission?: Yes Plan: Pain control. Incentive spirometry. - Time Time Spent with patient: 25-34 minutes Medications reviewed and adjusted accordingly: Yes
[2018-03-19] MEDS ORDERED: (PENDING PHARMACY ID) (Oxycodone Hcl/Acetaminophen [Percocet 10-325 Mg Tablet] 1 EACH) PO PRN (18:50)
[2018-03-19] MEDS ORDERED: (PENDING PHARMACY ID) (Mirabegron [Myrbetriq] 50 MG) PO SCH (19:00)
[2018-03-19 19:49] LABS: ABSOLUTE EOSINOPHILS # (AUTO) 0.1 10^3/uL (0.0-0.6); ABSOLUTE LYMPHOCYTES (AUTO) 1.2 10^3/uL (0.5-4.7); ABSOLUTE MONOCYTES (AUTO) 0.5 10^3/uL (0.1-1.4); ABSOLUTE NEUT (AUTO) 4.4 10^3/uL (1.7-8.2); BASOPHILS % (AUTO) 0.3 % (0-2); EOSINOPHILS % (AUTO) 1.3 % (0-6); HEMATOCRIT 28.2 % (37.9-51.0); HEMOGLOBIN 9.7 g/dL (13.5-17.0); LYMPHOCYTES % (AUTO) 18.8 % (13-45); MEAN CORPUSCULAR HEMOGLOBIN 32.8 pg (27.0-33.4); MEAN CORPUSCULAR HGB CONC 34.3 g/dL (32.0-36.0); MEAN CORPUSCULAR VOLUME 96 fl (80-97); MONOCYTES % (AUTO) 7.6 % (3-13); PLATELET COUNT 150 10^3/uL (150-450); RED BLOOD COUNT 2.95 10^6/uL (4.35-5.55); RED CELL DISTRIBUTION WIDTH 14.3 % (11.5-14.0); TOTAL CELLS COUNTED % (AUTO) 100 %; WHITE BLOOD COUNT 6.1 10^3/uL (4.0-10.5)
[2018-03-19] MEDS: OXYCODONE-ACETAMINOPHEN 5-325 MG TABLET PO PRN (20:41)
[2018-03-19] MEDS: GABAPENTIN 300 MG CAPSULE PO SCH (21:39)
[2018-03-19] MEDS: SIMVASTATIN 10 MG TABLET PO SCH (21:39)
[2018-03-19] MEDS: ASCORBIC ACID 500 MG TABLET PO SCH (21:39)
[2018-03-19] MEDS: ARIPIPRAZOLE 5 MG TABLET PO SCH (21:40)
[2018-03-19] MEDS ORDERED: FLUTICASONE/SALMETEROL DISKUS 250-50 MCG/DOSE IH SCH (22:00)
[2018-03-20 04:32] LABS: ABSOLUTE EOSINOPHILS # (AUTO) 0.1 10^3/uL (0.0-0.6); ABSOLUTE LYMPHOCYTES (AUTO) 1.8 10^3/uL (0.5-4.7); ABSOLUTE MONOCYTES (AUTO) 0.5 10^3/uL (0.1-1.4); ABSOLUTE NEUT (AUTO) 2.9 10^3/uL (1.7-8.2); BASOPHILS % (AUTO) 0.6 % (0-2); EOSINOPHILS % (AUTO) 2.5 % (0-6); HEMATOCRIT 27.6 % (37.9-51.0); HEMOGLOBIN 9.5 g/dL (13.5-17.0); MEAN CORPUSCULAR HEMOGLOBIN 32.7 pg (27.0-33.4); MEAN CORPUSCULAR HGB CONC 34.4 g/dL (32.0-36.0); MEAN CORPUSCULAR VOLUME 95 fl (80-97); MONOCYTES % (AUTO) 9.8 % (3-13); PLATELET COUNT 143 10^3/uL (150-450); RED CELL DISTRIBUTION WIDTH 14.6 % (11.5-14.0); SEGMENTED NEUTROPHILS % (AUTO) 53.1 % (42-78); TOTAL CELLS COUNTED % (AUTO) 100 %; WHITE BLOOD COUNT 5.4 10^3/uL (4.0-10.5)
[2018-03-20 04:52] LABS: ANION GAP 8 (5-19); BLOOD UREA NITROGEN 12 mg/dL (7-20); CALCIUM 8.5 mg/dL (8.4-10.2); CARBON DIOXIDE 25 mmol/L (22-30); CHLORIDE 108 mmol/L (98-107); GLUCOSE 83 mg/dL (75-110); POTASSIUM 3.7 mmol/L (3.6-5.0); SODIUM 141.2 mmol/L (137-145)
[2018-03-20] MEDS: GABAPENTIN 300 MG CAPSULE PO SCH ×3 (05:33→21:09)
[2018-03-20] MEDS: LANSOPRAZOLE 15 MG TAB.RAP.DR PO SCH (05:33)
[2018-03-20] MEDS: OXYCODONE-ACETAMINOPHEN 5-325 MG TABLET PO PRN ×3 (05:37→21:58)
--- NOTE | 2018-03-20 08:27 | RADIOLOGY REPORT (SQ) ---
EXAM DESCRIPTION: CHEST SINGLE VIEW COMPLETED DATE/TIME: 03/20/2018 8:07 am REASON FOR STUDY: pulmonary edema vs pulmon hemorrhage COMPARISON: 03/18/2018. EXAM PARAMETERS: NUMBER OF VIEWS: One view. TECHNIQUE: Single frontal radiographic view of the chest acquired. RADIATION DOSE: NA LIMITATIONS: None. FINDINGS: LUNGS AND PLEURA: There are persistent interstitial infiltrates throughout the right lung and at the left lung base. MEDIASTINUM AND HILAR STRUCTURES: No masses. Contour normal. HEART AND VASCULAR STRUCTURES: The heart is borderline in size with uncoiling thoracic aorta. BONES: No acute findings. HARDWARE: None in the chest. OTHER: Chest leads in place. IMPRESSION: No significant change in diffuse interstitial infiltrate throughout the right lung and a t the left lung base. TECHNICAL DOCUMENTATION: JOB ID: [id number] [employer]- All Rights Reserved Reading location - IP/workstation name: [email or web address]
[2018-03-20] MEDS: TAMSULOSIN HCL 0.4 MG CAP.SR.24H PO SCH (09:06)
[2018-03-20] MEDS: FERROUS SULFATE 325 MG TABLET PO SCH (09:06)
[2018-03-20] MEDS: ESCITALOPRAM OXALATE 10 MG TABLET PO SCH (09:06)
[2018-03-20] MEDS: ASCORBIC ACID 500 MG TABLET PO SCH ×2 (09:06→21:10)
[2018-03-20] MEDS: CITALOPRAM HYDROBROMIDE 20 MG TABLET PO SCH (09:06)
[2018-03-20] MEDS: ASPIRIN 81 MG TABLET, ENT COATED PO SCH (09:06)
[2018-03-20] MEDS: MULTIVITAMIN TABLET PO SCH (09:06)
[2018-03-20] MEDS: FLUTICASONE/SALMETEROL DISKUS 250-50 MCG/DOSE IH SCH ×2 (09:07→21:09)
[2018-03-20] MEDS: DOCUSATE SODIUM 100 MG CAPSULE PO SCH ×2 (09:07→17:43)
[2018-03-20] MEDS: BUPROPION HCL 75 MG TABLET PO SCH ×2 (09:07→21:11)
[2018-03-20] MEDS: RINGERS SOLUTION,LACTATED 1,000 ML IV PRN (09:07)
[2018-03-20 12:42] LABS: ABSOLUTE EOSINOPHILS # (AUTO) 0.1 10^3/uL (0.0-0.6); ABSOLUTE LYMPHOCYTES (AUTO) 1.7 10^3/uL (0.5-4.7); ABSOLUTE MONOCYTES (AUTO) 0.6 10^3/uL (0.1-1.4); ABSOLUTE NEUT (AUTO) 4.2 10^3/uL (1.7-8.2); BASOPHILS % (AUTO) 0.3 % (0-2); EOSINOPHILS % (AUTO) 2.2 % (0-6); HEMATOCRIT 27.7 % (37.9-51.0); HEMOGLOBIN 9.6 g/dL (13.5-17.0); LYMPHOCYTES % (AUTO) 25.2 % (13-45); MEAN CORPUSCULAR HEMOGLOBIN 33.2 pg (27.0-33.4); MEAN CORPUSCULAR HGB CONC 34.8 g/dL (32.0-36.0); MEAN CORPUSCULAR VOLUME 95 fl (80-97); MONOCYTES % (AUTO) 8.7 % (3-13); PLATELET COUNT 158 10^3/uL (150-450); RED CELL DISTRIBUTION WIDTH 14.1 % (11.5-14.0); SEGMENTED NEUTROPHILS % (AUTO) 63.6 % (42-78); TOTAL CELLS COUNTED % (AUTO) 100 %; WHITE BLOOD COUNT 6.6 10^3/uL (4.0-10.5)
--- NOTE | 2018-03-20 13:33 | PDOC PROGRESS REPORT ---
Subjective Progress Note for:: 03/20/18 Subjective:: The patient states that he is feeling better. His feels that he is becoming more confused everyday. Reason For Visit: PULMONARY HEMORRHAGE,FALLS,RECENT DIAGNOSIS OF Physical Exam Vital Signs: Temp Pulse Resp BP Pulse Ox 99.0 F 92 20 141/75 H 94 03/20/18 11:53 03/20/18 11:53 03/20/18 11:53 03/20/18 11:53 03/20/18 11:53 Intake & Output 03/19/18 03/20/18 03/21/18 06:59 06:59 06:59 Intake Total 1092 1275 1128 Output Total 250 Balance 842 1275 1128 Weight 87.3 kg 86.8 kg General appearance: PRESENT: no acute distress, cooperative Respiratory exam: PRESENT: other - No increased work of breathing.. ABSENT: rales, rhonchi, wheezes Cardiovascular exam: PRESENT: RRR, other - No lateral PMI. No thrills.. ABSENT : gallop, rubs, systolic murmur Pulses: PRESENT: normal dorsalis pedis pul GI/Abdominal exam: PRESENT: soft. ABSENT: distended, mass, normal bowel sounds , organolmegaly, tenderness Musculoskeletal exam: PRESENT: normal inspection. ABSENT: tenderness Neurological exam: PRESENT: alert, awake, oriented to person, oriented to place , oriented to time, oriented to situation, CN II-XII grossly intact. ABSENT: motor sensory deficit Skin exam: PRESENT: dry, intact, warm Results Laboratory Results: 03/20/18 11:55 03/20/18 04:01 03/19/18 03/19/18 03/20/18 13:09 19:45 04:01 WBC 6.9 6.1 5.4 RBC 3.06 L 2.95 L 2.90 L Hgb 10.1 L 9.7 L 9.5 L Hct 29.1 L 28.2 L 27.6 L MCV 95 96 95 MCH 33.1 32.8 32.7 MCHC 34.8 34.3 34.4 RDW 14.5 H 14.3 H 14.6 H Plt Count 159 150 143 L Seg Neutrophils % 78.0 72.0 53.1 Lymphocytes % 13.8 18.8 34.0 Monocytes % 6.4 7.6 9.8 Eosinophils % 1.7 1.3 2.5 Basophils % 0.1 0.3 0.6 Absolute Neutrophils 5.4 4.4 2.9 Absolute Lymphocytes 1.0 1.2 1.8 Absolute Monocytes 0.4 0.5 0.5 Absolute Eosinophils 0.1 0.1 0.1 Absolute Basophils 0.0 0.0 0.0 Sodium Potassium Chloride Carbon Dioxide Anion Gap BUN Creatinine Est GFR ( Amer) Est GFR (Non-Af Amer) Glucose Calcium 03/20/18 03/20/18 04:01 11:55 WBC 6.6 RBC 2.90 L Hgb 9.6 L Hct 27.7 L MCV 95 MCH 33.2 MCHC 34.8 RDW 14.1 H Plt Count 158 Seg Neutrophils % 63.6 Lymphocytes % 25.2 Monocytes % 8.7 Eosinophils % 2.2 Basophils % 0.3 Absolute Neutrophils 4.2 Absolute Lymphocytes 1.7 Absolute Monocytes 0.6 Absolute Eosinophils 0.1 Absolute Basophils 0.0 Sodium 141.2 Potassium 3.7 Chloride 108 H Carbon Dioxide 25 Anion Gap 8 BUN 12 Creatinine 0.74 Est GFR ( Amer) > 60 Est GFR (Non-Af Amer) > 60 Glucose 83 Calcium 8.5 03/18/18 03/18/18 03/19/18 19:30 23:49 04:52 Creatine Kinase Troponin I < 0.012 < 0.012 < 0.012 NT-Pro-B Natriuret Pep 1700 H 03/19/18 04:52 Creatine Kinase 71 Troponin I NT-Pro-B Natriuret Pep Impressions: Abdomen/Pelvis CT 03/18/18 14:44 IMPRESSION: Mild diverticulosis coli. Osseous findings as described. No acute findings in the abdomen or pelvis. Chest CT 03/18/18 14:44 IMPRESSION: Fairly diffuse patchy and confluent airspace densities are identified throughout the right lung and in the posterior sulcus on the left as noted above. Differential possibilities would include pulmonary edema versus pulmonary hemorrhage. The possibility of a developing ARDS type pattern cannot be excluded. Clinical correlation is recommended. Other findings as noted above. Chest X-Ray 03/20/18 06:00 IMPRESSION: No significant change in diffuse interstitial infiltrate throughout the right lung and at the left lung base. Assessment & Plan - Diagnosis (1) Chest wall contusion Qualifiers: Encounter type: initial encounter Laterality: left Qualified Code(s): S20.212A - Contusion of left front wall of thorax, initial encounter Is this a current diagnosis for this admission?: Yes Plan: Avoid anticoagulants and antithrombotics. Pain control and oxygen supplementation. The patient states that the pain is better. (2) Confusion Is this a current diagnosis for this admission?: Yes Plan: The patient's states that she thinks that the patient is becoming more confused each day that he is in the hospital. She states that every time he fell at home prior to admission, he hit his head. Although this confusion has not been appreciated on my examination and visits, I will send the patient for CT of his head to rule out injury. (3) Fall Qualifiers: Encounter type: initial encounter Qualified Code(s): W19.XXXA - Unspecified fall, initial encounter Is this a current diagnosis for this admission?: Yes Plan: The patient will need PT/OT and probably placement at discharged. (4) New onset a-fib Is this a current diagnosis for this admission?: Yes Plan: The rate is controlled. Due to the patient's likely pulmonary hemorrhage vs contusion, and his recent history of frequent falls the patient will not be started on anticoagulation. (5) Cerebellar ataxia Is this a current diagnosis for this admission?: Yes (6) Peripheral neuropathy Is this a current diagnosis for this admission?: Yes (7) Rib fractures Qualifiers: Rib fracture type: multiple ribs Fracture type: closed Is this a current diagnosis for this admission?: Yes - Time Time Spent with patient: 25-34 minutes Medications reviewed and adjusted accordingly: Yes
--- NOTE | 2018-03-20 13:51 | RADIOLOGY REPORT (SQ) ---
EXAM DESCRIPTION: CT HEAD WITHOUT COMPLETED DATE/TIME: 03/20/2018 1:27 pm REASON FOR STUDY: falls hitting head, conffusion COMPARISON: None. TECHNIQUE: Axial images acquired through the brain without intravenous contrast. Images reviewed wi th bone, brain and subdural windows. Additional sagittal and coronal reconstructions were generated. Images stored on PACS. All CT scanners at this facility use dose modulation, iterative reconstruction, and/or weight based d osing when appropriate to reduce radiation dose to as low as reasonably achievable (ALARA). [facility]: Dose Right [facility]: CareDose [facility]: Dose Right [facility]: Teradose 4D [facility]: [employer] XII RADIATION DOSE: CT Rad equipment meets quality standard of care and radiation dose reduction techniq ues were employed. CTDIvol: 53.2 mGy. DLP: 1017 mGy-cm. mGy. LIMITATIONS: None. FINDINGS: VENTRICLES: Prominent. CEREBRUM: No masses. No hemorrhage. No midline shift. Areas of low density in the white matter mos t likely due to chronic micro-vascular ischemic change. No evidence for acute infarction. CEREBELLUM: No masses. No hemorrhage. No alteration of density. No evidence for acute infarction. EXTRAAXIAL SPACES: Mild age-related involutional change. No fluid collections. No masses. ORBITS AND GLOBE: No intra- or extraconal masses. Normal contour of globe without masses. CALVARIUM: No fracture. PARANASAL SINUSES: No fluid or mucosal thickening. SOFT TISSUES: No mass or hematoma. OTHER: No other significant finding. IMPRESSION: Chronic ischemic changes. EVIDENCE OF ACUTE STROKE: NO. TECHNICAL DOCUMENTATION: JOB ID: [id number] Quality ID # [id number]: Final reports with documentation of one or more dose reduction techniques (e.g., Au tomated exposure control, adjustment of the mA and/or kV according to patient size, use of iterative reconstruction technique) 2010 [employer]- All Rights Reserved Reading location - IP/workstation name: [email or web address]
[2018-03-20] MEDS: OXYCODONE HCL IR 5 MG TABLET PO PRN ×2 (15:40→21:57)
[2018-03-20] MEDS: ARIPIPRAZOLE 5 MG TABLET PO SCH (21:10)
[2018-03-20] MEDS: SIMVASTATIN 10 MG TABLET PO SCH (21:10)
[2018-03-21] MEDS: RINGERS SOLUTION,LACTATED 1,000 ML IV PRN (03:41)
[2018-03-21] MEDS: LANSOPRAZOLE 15 MG TAB.RAP.DR PO SCH (06:07)
[2018-03-21] MEDS: GABAPENTIN 300 MG CAPSULE PO SCH ×3 (06:07→21:18)
[2018-03-21] MEDS: OXYCODONE-ACETAMINOPHEN 5-325 MG TABLET PO PRN ×3 (06:07→20:26)
[2018-03-21] MEDS: OXYCODONE HCL IR 5 MG TABLET PO PRN ×3 (06:10→20:26)
[2018-03-21 07:40] LABS: ABSOLUTE EOSINOPHILS # (AUTO) 0.2 10^3/uL (0.0-0.6); ABSOLUTE LYMPHOCYTES (AUTO) 2.3 10^3/uL (0.5-4.7); ABSOLUTE MONOCYTES (AUTO) 0.6 10^3/uL (0.1-1.4); ABSOLUTE NEUT (AUTO) 2.9 10^3/uL (1.7-8.2); BASOPHILS % (AUTO) 0.4 % (0-2); EOSINOPHILS % (AUTO) 2.7 % (0-6); HEMATOCRIT 28.2 % (37.9-51.0); HEMOGLOBIN 9.8 g/dL (13.5-17.0); LYMPHOCYTES % (AUTO) 38.5 % (13-45); MEAN CORPUSCULAR HEMOGLOBIN 32.7 pg (27.0-33.4); MEAN CORPUSCULAR HGB CONC 34.7 g/dL (32.0-36.0); MEAN CORPUSCULAR VOLUME 95 fl (80-97); MONOCYTES % (AUTO) 10.5 % (3-13); PLATELET COUNT 161 10^3/uL (150-450); RED BLOOD COUNT 2.99 10^6/uL (4.35-5.55); RED CELL DISTRIBUTION WIDTH 14.5 % (11.5-14.0); SEGMENTED NEUTROPHILS % (AUTO) 47.9 % (42-78); TOTAL CELLS COUNTED % (AUTO) 100 %; WHITE BLOOD COUNT 6.1 10^3/uL (4.0-10.5)
[2018-03-21 08:07] LABS: ANION GAP 7 (5-19); BLOOD UREA NITROGEN 14 mg/dL (7-20); CALCIUM 8.6 mg/dL (8.4-10.2); CARBON DIOXIDE 27 mmol/L (22-30); CHLORIDE 108 mmol/L (98-107); GLUCOSE 86 mg/dL (75-110); POTASSIUM 3.8 mmol/L (3.6-5.0); SODIUM 141.6 mmol/L (137-145)
[2018-03-21] MEDS: MULTIVITAMIN TABLET PO SCH (09:12)
[2018-03-21] MEDS: TAMSULOSIN HCL 0.4 MG CAP.SR.24H PO SCH (09:12)
[2018-03-21] MEDS: FLUTICASONE/SALMETEROL DISKUS 250-50 MCG/DOSE IH SCH ×2 (09:12→21:18)
[2018-03-21] MEDS: ESCITALOPRAM OXALATE 10 MG TABLET PO SCH (09:12)
[2018-03-21] MEDS: FERROUS SULFATE 325 MG TABLET PO SCH (09:12)
[2018-03-21] MEDS: ASCORBIC ACID 500 MG TABLET PO SCH ×2 (09:12→21:18)
[2018-03-21] MEDS: CITALOPRAM HYDROBROMIDE 20 MG TABLET PO SCH (09:12)
[2018-03-21] MEDS: ASPIRIN 81 MG TABLET, ENT COATED PO SCH (09:12)
[2018-03-21] MEDS: DOCUSATE SODIUM 100 MG CAPSULE PO SCH ×2 (09:12→17:54)
[2018-03-21] MEDS: BUPROPION HCL 75 MG TABLET PO SCH ×2 (09:13→21:18)
[2018-03-21] MEDS: POLYETHYLENE GLYCOL 3350 POWDER 17 GM/1 PACKET PO SCH (11:14)
--- NOTE | 2018-03-21 15:38 | CONSULTATION REPORT E ---
Consultation Report NAME: WILSON ROSSI : 1940 AGE: 77Y DATE: 03/18/2018 ROOM: 302 A TO: LOU DANIELS M.D. FROM: Devon ROBLES, Requesting Physician HISTORY OF PRESENT ILLNESS: The patient is a 77-year-old male who came in with decreased shortness of breath and sometimes wheezing and coughing up yellow-green phlegm. The patient has been short of breath and coughing for the last 1-2 weeks, claimed that he has had episodes of pneumonia, bilateral, about a few weeks ago, and hospitalized. Currently, he is feeling a lot better. Denies any fever. No hemoptysis. No chest pain. He received some nebulizer treatments and feels better. PAST MEDICAL HISTORY: The patient denies any history of asthma, heart attack, or hypertension, seizure. Denies any history of hepatitis, but complains about arthritis and right-sided chest pain. The patient reports depression and posttraumatic stress disorder. PAST SURGICAL HISTORY: Denies any pacemaker. SOCIAL HISTORY: The patient smoked about 1-1/2 packs per day since he was 16 years old, for about 20 years, and claimed that she changed to cigars thereafter, and the patient has not used alcohol for many years, denies any recreational drug use. FAMILY HISTORY: Reviewed and not pertinent. MEDICATION ALLERGIES: No known drug allergies. REVIEW OF SYSTEMS: CONSTITUTIONAL: No fever or chills. EYES: No visualize disturbances. No jaundice. EARS: No hearing changes and no ear discharge. NOSE, MOUTH, AND THROAT: Denies any throat pain. Denies any nasal discharge. CHEST AND LUNGS: History of wheezing, dyspnea, chest tightness, and complained about coughing yellow-green sputum for the last 1 or 2 weeks and history of pneumonia about 2 to 3 weeks ago, claimed to be bilateral. GASTROINTESTINAL: Complained about abdominal pain with vomiting for about 3 or 4 times prior to this admission. GENITOURINARY: No dysuria or hematuria or urinary stones. PSYCHIATRIC: The patient has a history of depression. No anxiety. PHYSICAL EXAMINATION: GENERAL: The patient is awake, alert, oriented x3, afebrile with temperature of 97.7 with T-max 98.4, blood pressure is 135/67, heart rate of 94, respiratory rate of 17, saturation is 99% on 4 L nasal cannula. EYES: No jaundice or pallor. EARS, NOSE, AND THROAT: No ear drainage noted. No nasal discharge. CHEST AND LUNGS: Currently, no wheezing, no rhonchi, no coarse crackles. CARDIOVASCULAR: S1, S2 distinct. Normal rate, regular rhythm. ABDOMEN: Flabby. Positive bowel sounds. Soft, nondistended, nontender. EXTREMITIES: No joint swelling or cellulitis. DIAGNOSTIC DATA: Laboratory: CBC done today showed a white count of 9.1, hemoglobin of 11.6, hematocrit of 34, platelet of 181, segs are 75.4. There are no eosinophils. PT is 13.1, INR is 0.94, PTT is 37.2. Chemistries done today showed sodium of 141, potassium of 4.1, chloride 109, CO2 of 25, BUN of 16, creatinine is 0.78, glucose is 101, calcium is 9.1, magnesium is 2.3, total bilirubin is 1.6 (a little bit high), direct bilirubin 0.6. NT BNP is 2550, which is also high. Total protein is 5.9, albumin is 3.4. Chest CT scan done today showed an infiltrate involving the right lung, diffuse from the right upper lobe and right lower lobe. The left lung appeared normal. The CT scan of the abdomen, which was also ordered today, showed normal liver size, no masses, and no dilated ducts, spleen is also normal. Pancreas showed no adjacent inflammation or pancreatic fluid collection, and the pancreatic duct was not dilated. Gallbladder appeared normal. No inflammatory changes. Adrenal glands appeared normal. Right kidneys and ureter and left kidneys and ureter: No solid masses, no hydronephrosis. There was a small nonobstructive middle calyceal calculus. Ureter and vessels are normal. Retroperitoneum appeared normal. Appendix, pelvis, and abdominal wall appeared normal. Bones have scoliosis and degenerative joint disease. The impression on the abdominal CT scan showed mild diverticulosis coli. No acute findings in the abdomen and pelvis. ASSESSMENT: Pulmonary infiltrate, right lobe, may be infectious and inflammatory. Infectious inflammatory disease cannot be completed excluded. PLAN AND RECOMMENDATIONS: 1. We will continue to treat the patient with IV antibiotics for now. 2. We will do a sputum culture with AFB, fungi, and bacteria tomorrow morning. 3. We will follow the patient. We may consider bronchoscopy during this admission. 4. Continue Advair 150/50 mcg inhaler, 1 puff b.i.d. DICTATING PHYSICIAN: LOU DANIELS MD,ROBB,MPH [id number] PHY#: [id number] ID: [id number] JOB#: [id number] ACCT: [id number] cc:LOU DANIELS M.D. > MTDD
--- NOTE | 2018-03-21 15:40 | PROGRESS NOTE E ---
Progress Note NAME: WILSON ROSSI : 1940 AGE: 77Y DATE: 03/20/2018 ROOM: 302 SUBJECTIVE: The patient is a 77-year-old male who came in with pulmonary infiltrate involving the right lung. Patient claims that he fell before coming to the hospital. He has two episodes of falling backwards. He hit his head and the upper chest when he fell forward hitting both sides of his head. Claims that his breathing is about the same or slightly better compared to yesterday. Denies any hemoptysis or coughing or any yellow-green phlegm. The chest pain also appeared to be slightly improving compared to yesterday. Denies any worsening dyspnea. No nausea, vomiting, diarrhea. OBJECTIVE: GENERAL: Patient awake, alert, oriented x3. Afebrile. Not in apparent respiratory distress. VITAL SIGNS: A temperature of 96.7 with a T-max of 99.3, heart rate is 98, blood pressure is 148/80, respiration is 15, saturations 92% on room. EYES: No jaundice or pallor. EARS, NOSE, AND THROAT: No ear drainage. No nasal discharge. CHEST AND LUNGS: No wheezing, no rhonchi, no coarse crackles. CARDIOVASCULAR: Slight chest tenderness anteriorly. ABDOMEN: Flabby. Positive bowel sounds. Soft, nondistended, nontender. EXTREMITIES: No joint swelling and no cellulitis. LABORATORY: CBC done today shows white count of 6.1, hematocrit is 38.2, platelet count is 150. CK is 13.4, INR 0.97. Chemistry done today shows sodium 140, potassium 4.1, chloride 109, CO2 is 26, BUN is 15, creatinine 0.72, glucose is 98 and calcium is 8.6. SGOT is 20, SGPT is 31. Total protein 5.6, albumin is 3.0. ASSESSMENT: PULMONARY INFILTRATE, RIGHT LUNG, DUE TO PULMONARY CONTUSION SECONDARY TO CHEST WALL INJURY. Pulmonary edema asymetrical vs intersttital lung disease. Patient appeared to be breathing comfortably. Denies any hemoptysis and denies any worsening dyspnea. PLAN/RECOMMENDATION: Will repeat the chest x-ray again tomorrow. DICTATING PHYSICIAN: LOU DANIELS MD,ROBB,MPH [id number] PHY#: [id number] ID: [id number] JOB#: [id number] ACCT: [id number] cc: > MTDD
--- NOTE | 2018-03-21 15:58 | PDOC PROGRESS REPORT ---
Subjective Progress Note for:: 03/21/18 Subjective:: The patient is sleeping soundly. He is easily awakened. No acute distress. Reason For Visit: PULMONARY HEMORRHAGE,FALLS,RECENT DIAGNOSIS OF Physical Exam Vital Signs: Temp Pulse Resp BP Pulse Ox 98.2 F 74 18 154/82 H 96 03/21/18 11:38 03/21/18 14:00 03/21/18 11:38 03/21/18 11:38 03/21/18 11:38 Intake & Output 03/20/18 03/21/18 03/22/18 06:59 06:59 06:59 Intake Total 1275 3628 375 Output Total 500 500 Balance 1275 3128 -125 Weight 86.8 kg 88.2 kg General appearance: PRESENT: no acute distress, disheveled Respiratory exam: PRESENT: other - No increased work of breathing. No wheezes, rales, or rhonchi.. Cardiovascular exam: PRESENT: RRR. ABSENT: gallop, rubs, systolic murmur GI/Abdominal exam: PRESENT: normal bowel sounds, soft. ABSENT: hernia, mass, organolmegaly, tenderness Extremities exam: ABSENT: clubbing, pedal edema, tenderness Musculoskeletal exam: PRESENT: normal inspection. ABSENT: deformity, dislocation, tenderness Neurological exam: PRESENT: alert, awake, oriented to person, oriented to place , oriented to time, oriented to situation, CN II-XII grossly intact. ABSENT: motor sensory deficit Psychiatric exam: PRESENT: appropriate affect, normal mood Skin exam: PRESENT: dry, intact, warm Results Laboratory Results: 03/21/18 06:26 03/21/18 06:26 03/21/18 03/21/18 06:26 06:26 WBC 6.1 RBC 2.99 L Hgb 9.8 L Hct 28.2 L MCV 95 MCH 32.7 MCHC 34.7 RDW 14.5 H Plt Count 161 Seg Neutrophils % 47.9 Lymphocytes % 38.5 Monocytes % 10.5 Eosinophils % 2.7 Basophils % 0.4 Absolute Neutrophils 2.9 Absolute Lymphocytes 2.3 Absolute Monocytes 0.6 Absolute Eosinophils 0.2 Absolute Basophils 0.0 Sodium 141.6 Potassium 3.8 Chloride 108 H Carbon Dioxide 27 Anion Gap 7 BUN 14 Creatinine 0.77 Est GFR ( Amer) > 60 Est GFR (Non-Af Amer) > 60 Glucose 86 Calcium 8.6 03/18/18 03/18/18 03/19/18 19:30 23:49 04:52 Creatine Kinase Troponin I < 0.012 < 0.012 < 0.012 NT-Pro-B Natriuret Pep 1700 H 03/19/18 04:52 Creatine Kinase 71 Troponin I NT-Pro-B Natriuret Pep Impressions: Abdomen/Pelvis CT 03/18/18 14:44 IMPRESSION: Mild diverticulosis coli. Osseous findings as described. No acute findings in the abdomen or pelvis. Chest CT 03/18/18 14:44 IMPRESSION: Fairly diffuse patchy and confluent airspace densities are identified throughout the right lung and in the posterior sulcus on the left as noted above. Differential possibilities would include pulmonary edema versus pulmonary hemorrhage. The possibility of a developing ARDS type pattern cannot be excluded. Clinical correlation is recommended. Other findings as noted above. Head CT 03/20/18 00:00 IMPRESSION: Chronic ischemic changes. EVIDENCE OF ACUTE STROKE: NO. Chest X-Ray 03/20/18 06:00 IMPRESSION: No significant change in diffuse interstitial infiltrate throughout the right lung and at the left lung base. Assessment & Plan - Diagnosis (1) Chest wall contusion Qualifiers: Encounter type: initial encounter Laterality: left Qualified Code(s): S20.212A - Contusion of left front wall of thorax, initial encounter Is this a current diagnosis for this admission?: Yes Plan: Avoid anticoagulants and antithrombotics. Pain control and oxygen supplementation. The patient appears to be pain free. (2) Confusion Is this a current diagnosis for this admission?: Yes Plan: The patient's complained that he was confused. CT of his head was performed yesterday and was positive for chronic ischemic changes, but no acute infarct. For me the patient seems to be at his baseline mental status. (3) Fall Qualifiers: Encounter type: initial encounter Qualified Code(s): W19.XXXA - Unspecified fall, initial encounter Is this a current diagnosis for this admission?: Yes Plan: I await evaluation by PT/OT. This paitent needs rehab before he goes home to avoid further injury from falls. (4) New onset a-fib Is this a current diagnosis for this admission?: Yes Plan: The rate is controlled. Due to the patient's likely pulmonary hemorrhage vs contusion, and his recent history of frequent falls the patient will not be started on anticoagulation. 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 The patient needs rehab. (7) Rib fractures Qualifiers: Rib fracture type: multiple ribs Fracture type: closed Is this a current diagnosis for this admission?: Yes Plan: Pain control. Incentive spirometry. - Time Time Spent with patient: 25-34 minutes Medications reviewed and adjusted accordingly: Yes Anticipated discharge: SNF
[2018-03-21] MEDS: ARIPIPRAZOLE 5 MG TABLET PO SCH (21:18)
[2018-03-21] MEDS: SIMVASTATIN 10 MG TABLET PO SCH (21:18)
[2018-03-21] MEDS: NORMAL SALINE 1000 ML 1,000 ML IV PRN (21:18)
--- NOTE | 2018-03-21 21:20 | PROGRESS NOTE E ---
Progress Note NAME: WILSON ROSSI : 1940 AGE: 77Y DATE: 03/21/2018 ROOM: 302 SUBJECTIVE: Patient is a 77-year-old male who came in with pulmonary infiltrates bilaterally, secondary to fall and rib fracture. Patient says he has had falling episodes several times over the last few months. Currently feeling better. Denies any fever, chills, increasing cough or purulent sputum production. Patient claims he had hemoptysis on admission, but currently feeling better, with no recurrence of hemoptysis. OBJECTIVE: GENERAL: Patient is awake, alert, coherent, oriented x3, not in apparent respiratory distress, with a temperature of 99.1, with a T-max of 99.3. Blood pressure is 157/22, heart rate is 100, respiratory rate is 18, saturation is 97% on room air. EYES: No jaundice or pallor. EARS, NOSE AND THROAT: No ear drainage. No nasal discharge. HEAD AND NECK: No scalp swelling. No neck tenderness. CHEST AND LUNGS: No wheezing, no rhonchi, no coarse crackles. CARDIOVASCULAR: S1, S2 distant. Normal rate, regular rhythm. ABDOMEN: Flabby. Positive bowel sounds. Soft, nondistended, nontender. EXTREMITIES: No joint swelling or cellulitis. LABORATORY DATA: CBC done today showed white count of 6.1, hemoglobin 9.8, hematocrit is 28.2, platelet count is 151,000. Chemistries today showed sodium is 141, potassium is 3.8, chloride 108, CO2 is 27, BUN 14, creatinine 0.77, glucose 86 and calcium is 8.6. ASSESSMENT: 1. PULMONARY INFILTRATE, RIGHT LUNG, MOST LIKELY DUE TO PULMONARY CONTUSION, SECONDARY TO RIB FRACTURE AND FALL INJURY. Currently stable and symptomatically better. 2. HISTORY OF MULTIPLE FALL EPISODES. PLAN/RECOMMENDATIONS: 1. Encourage physical activity as tolerated. 2. Agree with physical therapy. 3. Recommend Pulmonary clinic followup in 2 to 3 weeks following hospital discharge. Will sign off tonight. If you have any questions, please feel free to call me. DICTATING PHYSICIAN: LOU DANIELS MD,ROBB,MPH [id number] PHY#: [id number] ID: [id number] JOB#: [id number] ACCT: [id number] cc: > MTDD
[2018-03-22] MEDS: GABAPENTIN 300 MG CAPSULE PO SCH ×3 (05:44→21:21)
[2018-03-22] MEDS: LANSOPRAZOLE 15 MG TAB.RAP.DR PO SCH (05:44)
[2018-03-22] MEDS: ASPIRIN 81 MG TABLET, ENT COATED PO SCH (08:54)
[2018-03-22] MEDS: FLUTICASONE/SALMETEROL DISKUS 250-50 MCG/DOSE IH SCH ×2 (09:47→21:18)
[2018-03-22] MEDS: POLYETHYLENE GLYCOL 3350 POWDER 17 GM/1 PACKET PO SCH (09:48)
[2018-03-22] MEDS: DOCUSATE SODIUM 100 MG CAPSULE PO SCH ×2 (09:52→17:38)
--- NOTE | 2018-03-22 09:53 | XCELERA REPORT ---
[address] [address] Transthoracic Echocardiogram Report Name: WILSON ROSSI Age: 77 yrs Gender: Male : 1940 Patient Status: Inpatient Patient Location: [address] [place] [address] Study Date: 03/21/2018 02:44 PM Procedure: A complete two-dimensional transthoracic echocardiogram was performed (2D, M-mode, spectral and color flow Doppler). The study was technically difficult with many images being suboptimal in quality. Reason For Study: new onset atrial fibrillation Ordering Physician: CHERYL SAINZ Performed By: Taryn Tsai Interpretation Summary The left ventricular ejection fraction is normal. There is mild to moderate concentric left ventricular hypertrophy. The left ventricle is grossly normal size. Doppler measurements suggest impaired left ventricular relaxation, which is associated with grade I/IV or mild diastolic dysfunction Not all wall segments were well visualized. The right ventricle is mild to moderately dilated. Right ventricular function cannot be assessed due to poor image quality. The right atrium is mildly dilated. The left atrium is moderately dilated. There is a trace amount of mitral regurgitation There is no mitral valve stenosis. There is a trace amount of aortic regurgitation There is no aortic valve stenosis There is a trace or physiologic amount of tricuspid regurgitation Tricuspid regurgitation jet envelope not well defined to measure RV systolic pressure accurately. The aortic root is not well visualized. The inferior vena cava appeared normal and decreased > 50% with respiration (RAP 5-10 mmHg) There is no pericardial effusion. MMode/2D Measurements & Calculations RVDd: 3.6 cm LVIDd: 5.5 cm FS: 41.6 % Ao root diam: 2.9 cm IVSd: 0.70 cm LVIDs: 3.2 cm EDV(Teich): 146.6 ml Ao root area: 6.5 cm2 LVPWd: 0.82 cm ESV(Teich): 41.1 ml EF(Teich): 72.0 % LVOT diam: 2.2 cm LVOT area: 3.9 cm2 Doppler Measurements & Calculations MV E max stefano: MV dec slope: Ao V2 max: LV V1 max P.9 cm/sec 173.9 cm/sec 3.3 mmHg MV A max stefano: 519.7 cm/sec2 Ao max PG: LV V1 mean P.6 cm/sec MV dec time: 0.17 sec 12.1 mmHg 1.9 mmHg MV E/A: 1.0 Ao V2 mean: LV V1 max: 129.5 cm/sec 91.3 cm/sec Ao mean PG: LV V1 mean: 7.2 mmHg 66.0 cm/sec Ao V2 VTI: 34.4 cm LV V1 VTI: 19.8 cm CHERYL(I,D): 2.2 cm2 CHERYL(V,D): 2.0 cm2 SV(LVOT): 76.3 ml PA V2 max: TR max stefano: 118.9 cm/sec 180.8 cm/sec PA max P.7 mmHg TR max P.1 mmHg Left Ventricle The left ventricle is grossly normal size. There is mild to moderate concentric left ventricular hypertrophy. The left ventricular ejection fraction is normal. Doppler measurements suggest impaired left ventricular relaxation, which is associated with grade I/IV or mild diastolic dysfunction. Not all wall segments were well visualized. Right Ventricle The right ventricle is mild to moderately dilated. Right ventricular function cannot be assessed due to poor image quality. Atria The right atrium is mildly dilated. The left atrium is moderately dilated. Interarterial septum not well visualized and not well dopplered. Cannot comment on ASD/PFO presence. Mitral Valve The mitral valve is not well visualized. There is no mitral valve stenosis. There is a trace amount of mitral regurgitation. Aortic Valve The aortic valve is not well visualized secondary to technical limitations. There is no aortic valve stenosis. There is a trace amount of aortic regurgitation. Tricuspid Valve The tricuspid valve is not well visualized secondary to technical limitations. There is no tricuspid stenosis. There is a trace or physiologic amount of tricuspid regurgitation. Tricuspid regurgitation jet envelope not well defined to measure RV systolic pressure accurately. Pulmonic Valve The pulmonic valve is not well visualized. Great Vessels The aortic root is not well visualized. The inferior vena cava appeared normal and decreased > 50% with respiration (RAP 5-10 mmHg). Effusions There is no pericardial effusion. : CHERYL SAINZ > Dorothy Kohler
[2018-03-22] MEDS: ESCITALOPRAM OXALATE 10 MG TABLET PO SCH (09:56)
[2018-03-22] MEDS: FERROUS SULFATE 325 MG TABLET PO SCH (09:56)
[2018-03-22] MEDS: BUPROPION HCL 75 MG TABLET PO SCH ×2 (09:56→21:20)
[2018-03-22] MEDS: TAMSULOSIN HCL 0.4 MG CAP.SR.24H PO SCH (09:56)
[2018-03-22] MEDS: MULTIVITAMIN TABLET PO SCH (09:56)
[2018-03-22] MEDS: CITALOPRAM HYDROBROMIDE 20 MG TABLET PO SCH (09:56)
[2018-03-22] MEDS: ASCORBIC ACID 500 MG TABLET PO SCH ×2 (09:56→21:19)
--- NOTE | 2018-03-22 12:30 | PDOC PROGRESS REPORT ---
Subjective Progress Note for:: 03/22/18 Subjective:: Patient was admitted with chest wall contusion. Lung x-ray revealed diffuse interstitial infiltrate throughout the right lung and left base. CT scan suggested possible pulmonary edema versus pulmonary hemorrhage. Reason For Visit: PULMONARY HEMORRHAGE,FALLS,RECENT DIAGNOSIS OF Physical Exam Vital Signs: Temp Pulse Resp BP Pulse Ox 98.7 F 80 18 148/72 H 96 03/22/18 07:26 03/22/18 07:26 03/22/18 07:26 03/22/18 07:26 03/22/18 07:26 Intake & Output 03/21/18 03/22/18 03/23/18 06:59 06:59 06:59 Intake Total 3628 1800 Output Total 500 2050 Balance 3128 -250 Weight 88.2 kg 87.3 kg General appearance: PRESENT: no acute distress, other - resting tremors Head exam: PRESENT: atraumatic Ear exam: PRESENT: normal external ear exam Respiratory exam: PRESENT: chest wall tenderness Cardiovascular exam: PRESENT: RRR. ABSENT: diastolic murmur, rubs, systolic murmur GI/Abdominal exam: PRESENT: normal bowel sounds, soft. ABSENT: distended, guarding, mass, organolmegaly, rebound, tenderness Extremities exam: PRESENT: full ROM. ABSENT: calf tenderness, clubbing, pedal edema Neurological exam: PRESENT: alert, awake, oriented to person, oriented to time, oriented to situation, abnormal gait, other Results Laboratory Results: 03/21/18 06:26 03/21/18 06:26 03/19/18 21:50 Sputum Gram Stain - Final 03/19/18 21:50 Sputum Sputum Culture - Final Normal Gaby 03/18/18 03/18/18 03/19/18 19:30 23:49 04:52 Creatine Kinase Troponin I < 0.012 < 0.012 < 0.012 NT-Pro-B Natriuret Pep 1700 H 03/19/18 04:52 Creatine Kinase 71 Troponin I NT-Pro-B Natriuret Pep Impressions: Abdomen/Pelvis CT 03/18/18 14:44 IMPRESSION: Mild diverticulosis coli. Osseous findings as described. No acute findings in the abdomen or pelvis. Chest CT 03/18/18 14:44 IMPRESSION: Fairly diffuse patchy and confluent airspace densities are identified throughout the right lung and in the posterior sulcus on the left as noted above. Differential possibilities would include pulmonary edema versus pulmonary hemorrhage. The possibility of a developing ARDS type pattern cannot be excluded. Clinical correlation is recommended. Other findings as noted above. Head CT 03/20/18 00:00 IMPRESSION: Chronic ischemic changes. EVIDENCE OF ACUTE STROKE: NO. Chest X-Ray 03/20/18 06:00 IMPRESSION: No significant change in diffuse interstitial infiltrate throughout the right lung and at the left lung base. Assessment & Plan - Time Time Spent with patient: 15-24 minutes Medications reviewed and adjusted accordingly: Yes Anticipated discharge: SNF Within: within 48 hours - Inpatient Certification Based on my medical assessment, after consideration of the patient's comorbidities, presenting symptoms, or acuity I expect that the services needed warrant INPATIENT care.: Yes Medical Necessity: Need for Pain Control, Risk of Complication if Not Cared For in Hospital - Plan Summary Plan Summary: Assessment and plan Chest wall contusion. Patient is been managed by pain control and oxygen supplementation. 2. Confusion. Patient appears to be at baseline. 3. Fall 4. Cerebellar ataxia chronic patient apparently has a history of severe alcohol abuse which may be contributing 5. Peripheral neuropathy which is also chronic possibly also related to severe alcohol abuse 6. Rib fracture secondary to mechanical fall. Will continue with pain control 7. Plan is for discharge to rehab once medically appropriate
[2018-03-22] MEDS: OXYCODONE HCL IR 5 MG TABLET PO PRN ×2 (14:53→21:19)
[2018-03-22] MEDS: OXYCODONE-ACETAMINOPHEN 5-325 MG TABLET PO PRN ×2 (14:53→21:19)
[2018-03-22] MEDS: NORMAL SALINE 1000 ML 1,000 ML IV PRN (14:57)
[2018-03-22] MEDS: SIMVASTATIN 10 MG TABLET PO SCH (21:19)
[2018-03-22] MEDS: ARIPIPRAZOLE 5 MG TABLET PO SCH (21:20)
[2018-03-23] MEDS: GABAPENTIN 300 MG CAPSULE PO SCH ×3 (05:52→21:31)
[2018-03-23] MEDS: LANSOPRAZOLE 15 MG TAB.RAP.DR PO SCH (05:52)
[2018-03-23] MEDS: POLYETHYLENE GLYCOL 3350 POWDER 17 GM/1 PACKET PO SCH (10:19)
[2018-03-23] MEDS: ESCITALOPRAM OXALATE 10 MG TABLET PO SCH (10:19)
[2018-03-23] MEDS: OXYCODONE-ACETAMINOPHEN 5-325 MG TABLET PO PRN ×3 (10:19→22:56)
[2018-03-23] MEDS: ASCORBIC ACID 500 MG TABLET PO SCH ×2 (10:19→21:31)
[2018-03-23] MEDS: MULTIVITAMIN TABLET PO SCH (10:20)
[2018-03-23] MEDS: CITALOPRAM HYDROBROMIDE 20 MG TABLET PO SCH (10:20)
[2018-03-23] MEDS: TAMSULOSIN HCL 0.4 MG CAP.SR.24H PO SCH (10:20)
[2018-03-23] MEDS: DOCUSATE SODIUM 100 MG CAPSULE PO SCH ×2 (10:20→17:50)
[2018-03-23] MEDS: FERROUS SULFATE 325 MG TABLET PO SCH (10:21)
[2018-03-23] MEDS: ASPIRIN 81 MG TABLET, ENT COATED PO SCH (10:21)
[2018-03-23] MEDS: BUPROPION HCL 75 MG TABLET PO SCH ×2 (10:23→21:31)
[2018-03-23] MEDS: FLUTICASONE/SALMETEROL DISKUS 250-50 MCG/DOSE IH SCH ×2 (10:26→21:31)
--- NOTE | 2018-03-23 11:41 | PDOC PROGRESS REPORT ---
Subjective Progress Note for:: 03/23/18 Subjective:: Patient was admitted with chest wall contusion. Lung x-ray revealed diffuse interstitial infiltrate throughout the right lung and left base. CT scan suggested possible pulmonary edema versus pulmonary hemorrhage. Patient feels better today, no difficulty breathing Reason For Visit: PULMONARY HEMORRHAGE,FALLS,RECENT DIAGNOSIS OF Physical Exam Vital Signs: Temp Pulse Resp BP Pulse Ox 98.2 F 87 20 124/87 H 94 03/23/18 07:20 03/23/18 07:20 03/23/18 07:20 03/23/18 07:20 03/23/18 07:20 Intake & Output 03/22/18 03/23/18 03/24/18 06:59 06:59 06:59 Intake Total 1800 1757 Output Total 2050 1550 Balance -250 207 Weight 87.3 kg 85.9 kg General appearance: PRESENT: no acute distress, well-nourished, other - resting tremors Head exam: PRESENT: atraumatic, normocephalic Eye exam: PRESENT: conjunctiva pink, EOMI, PERRLA. ABSENT: scleral icterus Ear exam: PRESENT: normal external ear exam Mouth exam: PRESENT: moist, tongue midline Neck exam: ABSENT: carotid bruit, JVD, lymphadenopathy, thyromegaly Respiratory exam: PRESENT: clear to auscultation alyssa. ABSENT: rales, rhonchi, wheezes Cardiovascular exam: PRESENT: RRR. ABSENT: diastolic murmur, rubs, systolic murmur Pulses: PRESENT: normal dorsalis pedis pul Vascular exam: PRESENT: normal capillary refill GI/Abdominal exam: PRESENT: normal bowel sounds, soft. ABSENT: distended, guarding, mass, organolmegaly, rebound, tenderness Rectal exam: PRESENT: deferred Extremities exam: PRESENT: full ROM. ABSENT: calf tenderness, clubbing, pedal edema Neurological exam: PRESENT: alert, awake, oriented to person, oriented to place , oriented to time, oriented to situation, CN II-XII grossly intact. ABSENT: motor sensory deficit Psychiatric exam: PRESENT: appropriate affect, normal mood. ABSENT: homicidal ideation, suicidal ideation Skin exam: PRESENT: dry, intact, warm. ABSENT: cyanosis, rash Results Laboratory Results: 03/21/18 06:26 03/21/18 06:26 03/19/18 21:50 Sputum Gram Stain - Final 03/19/18 21:50 Sputum Sputum Culture - Final Normal Gaby 03/18/18 03/18/18 03/19/18 19:30 23:49 04:52 Creatine Kinase Troponin I < 0.012 < 0.012 < 0.012 NT-Pro-B Natriuret Pep 1700 H 03/19/18 04:52 Creatine Kinase 71 Troponin I NT-Pro-B Natriuret Pep Impressions: Abdomen/Pelvis CT 03/18/18 14:44 IMPRESSION: Mild diverticulosis coli. Osseous findings as described. No acute findings in the abdomen or pelvis. Chest CT 03/18/18 14:44 IMPRESSION: Fairly diffuse patchy and confluent airspace densities are identified throughout the right lung and in the posterior sulcus on the left as noted above. Differential possibilities would include pulmonary edema versus pulmonary hemorrhage. The possibility of a developing ARDS type pattern cannot be excluded. Clinical correlation is recommended. Other findings as noted above. Head CT 03/20/18 00:00 IMPRESSION: Chronic ischemic changes. EVIDENCE OF ACUTE STROKE: NO. Chest X-Ray 03/20/18 06:00 IMPRESSION: No significant change in diffuse interstitial infiltrate throughout the right lung and at the left lung base. Assessment & Plan - Time Time Spent with patient: 15-24 minutes Medications reviewed and adjusted accordingly: Yes Anticipated discharge: SNF Within: within 72 hours - Inpatient Certification Based on my medical assessment, after consideration of the patient's comorbidities, presenting symptoms, or acuity I expect that the services needed warrant INPATIENT care.: Yes Medical Necessity: Need Close Monitoring Due to Risk of Patient Decompensation, Risk of Complication if Not Cared For in Hospital - Plan Summary Plan Summary: 1.Chest wall contusion. Continue pain control and oxygen supplementation. 2. Confusion. Patient appears to be at baseline mental status. 3. Fall, likely due to underlying neuropathy, tremors 4. Cerebellar ataxia chronic patient apparently has a history of severe alcohol abuse which may be contributing 5. Peripheral neuropathy which is also chronic possibly also related to severe alcohol abuse 6. Rib fracture secondary to mechanical fall. Will continue with pain control 7. Plan is for discharge to rehab once medically appropriate and bed available
[2018-03-23] MEDS: OXYCODONE HCL IR 5 MG TABLET PO PRN ×2 (16:49→22:55)
[2018-03-23] MEDS: SIMVASTATIN 10 MG TABLET PO SCH (21:32)
[2018-03-23] MEDS: ARIPIPRAZOLE 5 MG TABLET PO SCH (21:32)
[2018-03-23] MEDS: NORMAL SALINE 1000 ML 1,000 ML IV PRN (22:56)
[2018-03-24] MEDS: LANSOPRAZOLE 15 MG TAB.RAP.DR PO SCH (05:29)
[2018-03-24] MEDS: GABAPENTIN 300 MG CAPSULE PO SCH ×4 (05:30→23:03)
[2018-03-24 05:45] LABS: ABSOLUTE EOSINOPHILS # (AUTO) 0.2 10^3/uL (0.0-0.6); ABSOLUTE LYMPHOCYTES (AUTO) 2.3 10^3/uL (0.5-4.7); ABSOLUTE MONOCYTES (AUTO) 0.6 10^3/uL (0.1-1.4); ABSOLUTE NEUT (AUTO) 3.5 10^3/uL (1.7-8.2); BASOPHILS % (AUTO) 0.7 % (0-2); EOSINOPHILS % (AUTO) 3.3 % (0-6); HEMATOCRIT 27.5 % (37.9-51.0); HEMOGLOBIN 9.3 g/dL (13.5-17.0); MEAN CORPUSCULAR VOLUME 94 fl (80-97); MONOCYTES % (AUTO) 8.8 % (3-13); PLATELET COUNT 216 10^3/uL (150-450); RED BLOOD COUNT 2.92 10^6/uL (4.35-5.55); RED CELL DISTRIBUTION WIDTH 14.5 % (11.5-14.0); SEGMENTED NEUTROPHILS % (AUTO) 53.2 % (42-78); TOTAL CELLS COUNTED % (AUTO) 100 %; WHITE BLOOD COUNT 6.6 10^3/uL (4.0-10.5)
[2018-03-24 06:07] LABS: ANION GAP 7 (5-19); BLOOD UREA NITROGEN 10 mg/dL (7-20); CALCIUM 8.4 mg/dL (8.4-10.2); CARBON DIOXIDE 25 mmol/L (22-30); CHLORIDE 111 mmol/L (98-107); GLUCOSE 82 mg/dL (75-110); POTASSIUM 3.9 mmol/L (3.6-5.0); SODIUM 142.6 mmol/L (137-145)
[2018-03-24] MEDS: OXYCODONE HCL IR 5 MG TABLET PO PRN ×3 (08:20→21:59)
[2018-03-24] MEDS: OXYCODONE-ACETAMINOPHEN 5-325 MG TABLET PO PRN ×2 (08:22→21:57)
[2018-03-24] MEDS: ASPIRIN 81 MG TABLET, ENT COATED PO SCH (08:23)
[2018-03-24] MEDS: ESCITALOPRAM OXALATE 10 MG TABLET PO SCH (10:16)
[2018-03-24] MEDS: MULTIVITAMIN TABLET PO SCH (10:17)
[2018-03-24] MEDS: ASCORBIC ACID 500 MG TABLET PO SCH ×2 (10:17→21:57)
[2018-03-24] MEDS: FLUTICASONE/SALMETEROL DISKUS 250-50 MCG/DOSE IH SCH ×2 (10:17→21:57)
[2018-03-24] MEDS: TAMSULOSIN HCL 0.4 MG CAP.SR.24H PO SCH (10:17)
[2018-03-24] MEDS: BUPROPION HCL 75 MG TABLET PO SCH ×2 (10:17→21:57)
[2018-03-24] MEDS: DOCUSATE SODIUM 100 MG CAPSULE PO SCH ×2 (10:17→17:00)
[2018-03-24] MEDS: FERROUS SULFATE 325 MG TABLET PO SCH (10:17)
[2018-03-24] MEDS: CITALOPRAM HYDROBROMIDE 20 MG TABLET PO SCH (10:17)
[2018-03-24] MEDS: POLYETHYLENE GLYCOL 3350 POWDER 17 GM/1 PACKET PO SCH (10:18)
--- NOTE | 2018-03-24 11:15 | PDOC PROGRESS REPORT ---
Subjective Progress Note for:: 03/24/18 Subjective:: Patient was admitted with chest wall contusion. Lung x-ray revealed diffuse interstitial infiltrate throughout the right lung and left base. CT scan suggested possible pulmonary edema versus pulmonary hemorrhage. Patient feels better today, no difficulty breathing. His neuropathy is about the same with persistent tremors and shaking. He does have follow-up appointment with neurologist Reason For Visit: PULMONARY HEMORRHAGE,FALLS,RECENT DIAGNOSIS OF Physical Exam Vital Signs: Temp Pulse Resp BP Pulse Ox 98.6 F 86 16 139/81 H 96 03/24/18 03:07 03/24/18 08:30 03/24/18 08:30 03/24/18 03:07 03/24/18 08:30 Intake & Output 03/23/18 03/24/18 03/25/18 06:59 06:59 06:59 Intake Total 1757 2866 Output Total 1550 2425 Balance 207 441 Weight 85.9 kg 86.8 kg General appearance: PRESENT: no acute distress, well-developed, other - Persistent shaking and tremors especially lower extremity Head exam: PRESENT: atraumatic, normocephalic Eye exam: PRESENT: conjunctiva pink, EOMI, PERRLA. ABSENT: scleral icterus Ear exam: PRESENT: normal external ear exam Mouth exam: PRESENT: moist, tongue midline Neck exam: ABSENT: carotid bruit, JVD, lymphadenopathy, thyromegaly Respiratory exam: PRESENT: chest wall tenderness. ABSENT: rales, rhonchi, wheezes Cardiovascular exam: PRESENT: RRR. ABSENT: diastolic murmur, rubs, systolic murmur Pulses: PRESENT: normal dorsalis pedis pul Vascular exam: PRESENT: normal capillary refill GI/Abdominal exam: PRESENT: normal bowel sounds, soft. ABSENT: distended, guarding, mass, organolmegaly, rebound, tenderness Rectal exam: PRESENT: deferred Extremities exam: PRESENT: full ROM. ABSENT: calf tenderness, clubbing, pedal edema Neurological exam: PRESENT: alert, awake, oriented to person, oriented to place , oriented to time, oriented to situation, CN II-XII grossly intact, other - Persistent tremors. ABSENT: motor sensory deficit Psychiatric exam: PRESENT: appropriate affect, normal mood. ABSENT: homicidal ideation, suicidal ideation Skin exam: PRESENT: dry, intact, warm. ABSENT: cyanosis, rash Results Laboratory Results: 03/24/18 04:32 03/24/18 04:32 03/24/18 03/24/18 04:32 04:32 WBC 6.6 RBC 2.92 L Hgb 9.3 L Hct 27.5 L MCV 94 MCH 32.0 MCHC 34.0 RDW 14.5 H Plt Count 216 Seg Neutrophils % 53.2 Lymphocytes % 34.0 Monocytes % 8.8 Eosinophils % 3.3 Basophils % 0.7 Absolute Neutrophils 3.5 Absolute Lymphocytes 2.3 Absolute Monocytes 0.6 Absolute Eosinophils 0.2 Absolute Basophils 0.0 Sodium 142.6 Potassium 3.9 Chloride 111 H Carbon Dioxide 25 Anion Gap 7 BUN 10 Creatinine 0.78 Est GFR ( Amer) > 60 Est GFR (Non-Af Amer) > 60 Glucose 82 Calcium 8.4 03/18/18 19:30 Blood Blood Culture - Final NO GROWTH IN 5 DAYS 03/18/18 03/18/18 03/19/18 19:30 23:49 04:52 Creatine Kinase Troponin I < 0.012 < 0.012 < 0.012 NT-Pro-B Natriuret Pep 1700 H 03/19/18 04:52 Creatine Kinase 71 Troponin I NT-Pro-B Natriuret Pep Impressions: Abdomen/Pelvis CT 03/18/18 14:44 IMPRESSION: Mild diverticulosis coli. Osseous findings as described. No acute findings in the abdomen or pelvis. Chest CT 03/18/18 14:44 IMPRESSION: Fairly diffuse patchy and confluent airspace densities are identified throughout the right lung and in the posterior sulcus on the left as noted above. Differential possibilities would include pulmonary edema versus pulmonary hemorrhage. The possibility of a developing ARDS type pattern cannot be excluded. Clinical correlation is recommended. Other findings as noted above. Head CT 03/20/18 00:00 IMPRESSION: Chronic ischemic changes. EVIDENCE OF ACUTE STROKE: NO. Chest X-Ray 03/20/18 06:00 IMPRESSION: No significant change in diffuse interstitial infiltrate throughout the right lung and at the left lung base. Assessment & Plan - Time Time Spent with patient: 15-24 minutes Medications reviewed and adjusted accordingly: Yes Anticipated discharge: SNF Within: when bed available - Inpatient Certification Based on my medical assessment, after consideration of the patient's comorbidities, presenting symptoms, or acuity I expect that the services needed warrant INPATIENT care.: Yes Medical Necessity: Need for Pain Control - Plan Summary Plan Summary: 1.Chest wall contusion. Continue pain control and oxygen supplementation. 2. Confusion. Patient appears to be at baseline mental status. 3. Fall, likely due to underlying neuropathy, tremors 4. Cerebellar ataxia chronic patient apparently has a history of severe alcohol abuse which may be contributing factors 5. Peripheral neuropathy which is also chronic possibly also related to severe alcohol abuse 6. Rib fracture secondary to mechanical fall. Will continue with pain control , adjust meds prn 7. Plan is for discharge to rehab once medically appropriate and bed available
[2018-03-24] MEDS: NORMAL SALINE 1000 ML 1,000 ML IV PRN (16:38)
[2018-03-24] MEDS: ARIPIPRAZOLE 5 MG TABLET PO SCH (21:57)
[2018-03-24] MEDS: SIMVASTATIN 10 MG TABLET PO SCH (21:57)
[2018-03-25] MEDS: LANSOPRAZOLE 15 MG TAB.RAP.DR PO SCH (05:50)
[2018-03-25] MEDS: GABAPENTIN 300 MG CAPSULE PO SCH ×3 (05:50→17:23)
[2018-03-25] MEDS: NORMAL SALINE 1000 ML 1,000 ML IV PRN (08:55)
[2018-03-25] MEDS: ASPIRIN 81 MG TABLET, ENT COATED PO SCH (08:59)
[2018-03-25] MEDS: POLYETHYLENE GLYCOL 3350 POWDER 17 GM/1 PACKET PO SCH (09:00)
[2018-03-25] MEDS: BUPROPION HCL 75 MG TABLET PO SCH ×2 (09:01→21:51)
[2018-03-25] MEDS: ASCORBIC ACID 500 MG TABLET PO SCH ×2 (09:01→21:51)
[2018-03-25] MEDS: FERROUS SULFATE 325 MG TABLET PO SCH (09:01)
[2018-03-25] MEDS: DOCUSATE SODIUM 100 MG CAPSULE PO SCH ×2 (09:02→17:23)
[2018-03-25] MEDS: OXYCODONE HCL IR 5 MG TABLET PO PRN ×2 (09:02→17:02)
[2018-03-25] MEDS: ESCITALOPRAM OXALATE 10 MG TABLET PO SCH (09:02)
[2018-03-25] MEDS: MULTIVITAMIN TABLET PO SCH (09:02)
[2018-03-25] MEDS: OXYCODONE-ACETAMINOPHEN 5-325 MG TABLET PO PRN ×2 (09:03→17:03)
[2018-03-25] MEDS: TAMSULOSIN HCL 0.4 MG CAP.SR.24H PO SCH (09:03)
[2018-03-25] MEDS: CITALOPRAM HYDROBROMIDE 20 MG TABLET PO SCH (10:15)
[2018-03-25] MEDS: FLUTICASONE/SALMETEROL DISKUS 250-50 MCG/DOSE IH SCH ×2 (10:15→21:50)
--- NOTE | 2018-03-25 11:26 | PDOC PROGRESS REPORT ---
Subjective Progress Note for:: 03/25/18 Subjective:: Patient was admitted with chest wall contusion. Lung x-ray revealed diffuse interstitial infiltrate throughout the right lung and left base. CT scan suggested possible pulmonary edema versus pulmonary hemorrhage. Patient feels better today, no difficulty breathing. His neuropathy is about the same with persistent tremors and shaking. He does have follow-up appointment with neurologist He reports feeling better after starting Neurontin Reason For Visit: PULMONARY HEMORRHAGE,FALLS,RECENT DIAGNOSIS OF Physical Exam Vital Signs: Temp Pulse Resp BP Pulse Ox 98.2 F 79 20 134/81 H 94 03/25/18 08:12 03/25/18 08:12 03/25/18 08:12 03/25/18 08:12 03/25/18 08:12 Intake & Output 03/24/18 03/25/18 03/26/18 06:59 06:59 06:59 Intake Total 2866 3020 977 Output Total 2425 1525 Balance 441 1495 977 Weight 86.8 kg 88.7 kg General appearance: PRESENT: no acute distress, other - resting tremors Head exam: PRESENT: atraumatic, normocephalic Eye exam: PRESENT: conjunctiva pink, EOMI, PERRLA. ABSENT: scleral icterus Ear exam: PRESENT: normal external ear exam Mouth exam: PRESENT: moist, tongue midline Neck exam: ABSENT: carotid bruit, JVD, lymphadenopathy, thyromegaly Respiratory exam: PRESENT: chest wall tenderness - L chest wall, clear to auscultation alyssa. ABSENT: rales, rhonchi, wheezes Cardiovascular exam: PRESENT: RRR. ABSENT: diastolic murmur, rubs, systolic murmur Pulses: PRESENT: normal dorsalis pedis pul Vascular exam: PRESENT: normal capillary refill GI/Abdominal exam: PRESENT: normal bowel sounds, soft. ABSENT: distended, guarding, mass, organolmegaly, rebound, tenderness Rectal exam: PRESENT: deferred Extremities exam: PRESENT: full ROM. ABSENT: calf tenderness, clubbing, pedal edema Neurological exam: PRESENT: alert, awake, oriented to person, oriented to place , oriented to time, oriented to situation, CN II-XII grossly intact, other - resting tremors. ABSENT: motor sensory deficit Psychiatric exam: PRESENT: appropriate affect, normal mood. ABSENT: homicidal ideation, suicidal ideation Skin exam: PRESENT: dry, intact, warm. ABSENT: cyanosis, rash Results Laboratory Results: 03/24/18 04:32 03/24/18 04:32 03/18/18 03/18/18 03/19/18 19:30 23:49 04:52 Creatine Kinase Troponin I < 0.012 < 0.012 < 0.012 NT-Pro-B Natriuret Pep 1700 H 03/19/18 04:52 Creatine Kinase 71 Troponin I NT-Pro-B Natriuret Pep Impressions: Abdomen/Pelvis CT 03/18/18 14:44 IMPRESSION: Mild diverticulosis coli. Osseous findings as described. No acute findings in the abdomen or pelvis. Chest CT 03/18/18 14:44 IMPRESSION: Fairly diffuse patchy and confluent airspace densities are identified throughout the right lung and in the posterior sulcus on the left as noted above. Differential possibilities would include pulmonary edema versus pulmonary hemorrhage. The possibility of a developing ARDS type pattern cannot be excluded. Clinical correlation is recommended. Other findings as noted above. Head CT 03/20/18 00:00 IMPRESSION: Chronic ischemic changes. EVIDENCE OF ACUTE STROKE: NO. Chest X-Ray 03/20/18 06:00 IMPRESSION: No significant change in diffuse interstitial infiltrate throughout the right lung and at the left lung base. Assessment & Plan - Time Time Spent with patient: 15-24 minutes Medications reviewed and adjusted accordingly: Yes Anticipated discharge: SNF Within: when bed available - Inpatient Certification Based on my medical assessment, after consideration of the patient's comorbidities, presenting symptoms, or acuity I expect that the services needed warrant INPATIENT care.: Yes Medical Necessity: Risk of Complication if Not Cared For in Hospital
[2018-03-25] MEDS: MORPHINE SULFATE 10 MG/ML INJ IV PRN (14:41)
[2018-03-25] MEDS: ARIPIPRAZOLE 5 MG TABLET PO SCH (21:50)
[2018-03-25] MEDS: SIMVASTATIN 10 MG TABLET PO SCH (21:51)
[2018-03-26] MEDS: GABAPENTIN 300 MG CAPSULE PO SCH ×4 (00:17→17:42)
[2018-03-26] MEDS: OXYCODONE HCL IR 5 MG TABLET PO PRN ×4 (00:20→23:26)
[2018-03-26] MEDS: OXYCODONE-ACETAMINOPHEN 5-325 MG TABLET PO PRN ×4 (00:21→23:30)
[2018-03-26] MEDS: LANSOPRAZOLE 15 MG TAB.RAP.DR PO SCH (05:43)
[2018-03-26] MEDS: ASPIRIN 81 MG TABLET, ENT COATED PO SCH (09:18)
[2018-03-26] MEDS: FERROUS SULFATE 325 MG TABLET PO SCH (09:18)
[2018-03-26] MEDS: POLYETHYLENE GLYCOL 3350 POWDER 17 GM/1 PACKET PO SCH (09:18)
[2018-03-26] MEDS: ESCITALOPRAM OXALATE 10 MG TABLET PO SCH (09:20)
[2018-03-26] MEDS: DOCUSATE SODIUM 100 MG CAPSULE PO SCH ×2 (09:20→17:42)
[2018-03-26] MEDS: MULTIVITAMIN TABLET PO SCH (09:20)
[2018-03-26] MEDS: BUPROPION HCL 75 MG TABLET PO SCH ×2 (09:20→21:31)
[2018-03-26] MEDS: TAMSULOSIN HCL 0.4 MG CAP.SR.24H PO SCH (09:20)
[2018-03-26] MEDS: ASCORBIC ACID 500 MG TABLET PO SCH ×2 (09:20→21:31)
[2018-03-26] MEDS: CITALOPRAM HYDROBROMIDE 20 MG TABLET PO SCH (09:27)
[2018-03-26] MEDS: FLUTICASONE/SALMETEROL DISKUS 250-50 MCG/DOSE IH SCH ×2 (09:27→21:32)
--- NOTE | 2018-03-26 11:23 | PDOC PROGRESS REPORT ---
Subjective Progress Note for:: 03/26/18 Subjective:: Patient was admitted with chest wall contusion. Lung x-ray revealed diffuse interstitial infiltrate throughout the right lung and left base. CT scan suggested possible pulmonary edema versus pulmonary hemorrhage. Patient feels better today, no difficulty breathing. His neuropathy is about the same with persistent tremors and shaking. He does have follow-up appointment with neurologist He reports feeling better after starting Neurontin and I have increased the dose Reason For Visit: PULMONARY HEMORRHAGE,FALLS,RECENT DIAGNOSIS OF Physical Exam Vital Signs: Temp Pulse Resp BP Pulse Ox 98.6 F 73 17 144/64 H 96 03/26/18 07:12 03/26/18 07:12 03/26/18 07:12 03/26/18 07:12 03/26/18 07:12 Intake & Output 03/25/18 03/26/18 03/27/18 06:59 06:59 06:59 Intake Total 3020 3441 Output Total 1525 1175 Balance 1495 2266 Weight 88.7 kg 86.5 kg General appearance: PRESENT: no acute distress Head exam: PRESENT: atraumatic, normocephalic Eye exam: PRESENT: conjunctiva pink, EOMI, PERRLA. ABSENT: scleral icterus Ear exam: PRESENT: normal external ear exam Mouth exam: PRESENT: moist, tongue midline Neck exam: ABSENT: carotid bruit, JVD, lymphadenopathy, thyromegaly Respiratory exam: PRESENT: chest wall tenderness - Left, no bruises, clear to auscultation alyssa. ABSENT: rales, rhonchi, wheezes Cardiovascular exam: PRESENT: RRR. ABSENT: diastolic murmur, rubs, systolic murmur Pulses: PRESENT: normal dorsalis pedis pul Vascular exam: PRESENT: normal capillary refill GI/Abdominal exam: PRESENT: normal bowel sounds, soft. ABSENT: distended, guarding, mass, organolmegaly, rebound, tenderness Rectal exam: PRESENT: deferred Extremities exam: PRESENT: full ROM. ABSENT: calf tenderness, clubbing, pedal edema Neurological exam: PRESENT: alert, awake, oriented to person, oriented to place , oriented to time, oriented to situation, CN II-XII grossly intact, other - resting tremors. ABSENT: motor sensory deficit Psychiatric exam: PRESENT: appropriate affect, normal mood. ABSENT: homicidal ideation, suicidal ideation Skin exam: PRESENT: dry, intact, warm. ABSENT: cyanosis, rash Results Laboratory Results: 03/24/18 04:32 03/24/18 04:32 03/18/18 03/18/18 03/19/18 19:30 23:49 04:52 Creatine Kinase Troponin I < 0.012 < 0.012 < 0.012 NT-Pro-B Natriuret Pep 1700 H 03/19/18 04:52 Creatine Kinase 71 Troponin I NT-Pro-B Natriuret Pep Impressions: Abdomen/Pelvis CT 03/18/18 14:44 IMPRESSION: Mild diverticulosis coli. Osseous findings as described. No acute findings in the abdomen or pelvis. Chest CT 03/18/18 14:44 IMPRESSION: Fairly diffuse patchy and confluent airspace densities are identified throughout the right lung and in the posterior sulcus on the left as noted above. Differential possibilities would include pulmonary edema versus pulmonary hemorrhage. The possibility of a developing ARDS type pattern cannot be excluded. Clinical correlation is recommended. Other findings as noted above. Head CT 03/20/18 00:00 IMPRESSION: Chronic ischemic changes. EVIDENCE OF ACUTE STROKE: NO. Chest X-Ray 03/20/18 06:00 IMPRESSION: No significant change in diffuse interstitial infiltrate throughout the right lung and at the left lung base. Assessment & Plan - Time Time Spent with patient: 15-24 minutes Medications reviewed and adjusted accordingly: Yes Anticipated discharge: SNF Within: Other - once bed available - Inpatient Certification Based on my medical assessment, after consideration of the patient's comorbidities, presenting symptoms, or acuity I expect that the services needed warrant INPATIENT care.: Yes Medical Necessity: Need for Pain Control - Plan Summary Plan Summary: 1.Chest wall contusion. Continue pain control and oxygen supplementation. 2. Confusion. Resolved. Patient at baseline mental status 3. Fall, likely due to underlying neuropathy, tremors 4. Cerebellar ataxia chronic patient apparently has a history of severe alcohol abuse which may be contributing factors 5. Peripheral neuropathy which is also chronic possibly also related to severe alcohol abuse 6. Rib fracture secondary to mechanical fall. Will continue with pain control , adjust meds prn 7. Plan is for discharge to rehab once bed available. He has been medically stable for transfer 8. F/u on labs in am
[2018-03-26] MEDS: SIMVASTATIN 10 MG TABLET PO SCH (21:30)
[2018-03-26] MEDS: ARIPIPRAZOLE 5 MG TABLET PO SCH (21:32)
[2018-03-27 05:25] LABS: ABSOLUTE EOSINOPHILS # (AUTO) 0.2 10^3/uL (0.0-0.6); ABSOLUTE LYMPHOCYTES (AUTO) 2.1 10^3/uL (0.5-4.7); ABSOLUTE MONOCYTES (AUTO) 0.4 10^3/uL (0.1-1.4); ABSOLUTE NEUT (AUTO) 3.7 10^3/uL (1.7-8.2); BASOPHILS % (AUTO) 0.7 % (0-2); EOSINOPHILS % (AUTO) 2.8 % (0-6); HEMATOCRIT 30.2 % (37.9-51.0); HEMOGLOBIN 10.4 g/dL (13.5-17.0); LYMPHOCYTES % (AUTO) 32.8 % (13-45); MEAN CORPUSCULAR HEMOGLOBIN 32.4 pg (27.0-33.4); MEAN CORPUSCULAR HGB CONC 34.4 g/dL (32.0-36.0); MEAN CORPUSCULAR VOLUME 94 fl (80-97); MONOCYTES % (AUTO) 6.9 % (3-13); PLATELET COUNT 316 10^3/uL (150-450); RED CELL DISTRIBUTION WIDTH 14.8 % (11.5-14.0); SEGMENTED NEUTROPHILS % (AUTO) 56.8 % (42-78); TOTAL CELLS COUNTED % (AUTO) 100 %; WHITE BLOOD COUNT 6.5 10^3/uL (4.0-10.5)
[2018-03-27 05:47] LABS: ANION GAP 8 (5-19); BLOOD UREA NITROGEN 15 mg/dL (7-20); CALCIUM 8.8 mg/dL (8.4-10.2); CARBON DIOXIDE 29 mmol/L (22-30); CHLORIDE 106 mmol/L (98-107); GLUCOSE 86 mg/dL (75-110)
[2018-03-27] MEDS: OXYCODONE-ACETAMINOPHEN 5-325 MG TABLET PO PRN ×3 (06:20→22:35)
[2018-03-27] MEDS: OXYCODONE HCL IR 5 MG TABLET PO PRN ×3 (06:21→22:35)
[2018-03-27] MEDS: LANSOPRAZOLE 15 MG TAB.RAP.DR PO SCH (06:22)
[2018-03-27] MEDS: GABAPENTIN 300 MG CAPSULE PO SCH ×4 (06:22→17:22)
[2018-03-27] MEDS: ASPIRIN 81 MG TABLET, ENT COATED PO SCH (09:33)
[2018-03-27] MEDS: DOCUSATE SODIUM 100 MG CAPSULE PO SCH ×2 (09:35→17:22)
[2018-03-27] MEDS: CITALOPRAM HYDROBROMIDE 20 MG TABLET PO SCH (09:35)
[2018-03-27] MEDS: FLUTICASONE/SALMETEROL DISKUS 250-50 MCG/DOSE IH SCH ×2 (09:35→22:35)
[2018-03-27] MEDS: TAMSULOSIN HCL 0.4 MG CAP.SR.24H PO SCH (09:36)
[2018-03-27] MEDS: ESCITALOPRAM OXALATE 10 MG TABLET PO SCH (09:36)
[2018-03-27] MEDS: POLYETHYLENE GLYCOL 3350 POWDER 17 GM/1 PACKET PO SCH (09:36)
[2018-03-27] MEDS: ASCORBIC ACID 500 MG TABLET PO SCH ×2 (09:36→22:35)
[2018-03-27] MEDS: BUPROPION HCL 75 MG TABLET PO SCH ×2 (09:36→22:35)
[2018-03-27] MEDS: FERROUS SULFATE 325 MG TABLET PO SCH (09:36)
[2018-03-27] MEDS: MULTIVITAMIN TABLET PO SCH (09:36)
[2018-03-27] MEDS ORDERED: ACETAMINOPHEN 325 MG TABLET PO PRN (12:47)
[2018-03-27] MEDS ORDERED: LEVALBUTEROL HCL NEB 1.25 MG/3 ML AMPUL NEB PRN (12:54)
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
[2018-03-27] MEDS ORDERED: AMLODIPINE BESYLATE 5 MG TABLET PO SCH (22:00)
[2018-03-27] MEDS: ARIPIPRAZOLE 5 MG TABLET PO SCH (22:35)
[2018-03-27] MEDS: CARVEDILOL 3.125 MG TABLET PO SCH (22:35)
[2018-03-27] MEDS: SIMVASTATIN 10 MG TABLET PO SCH (22:35)
[2018-03-28] MEDS: GABAPENTIN 300 MG CAPSULE PO SCH ×4 (03:49→17:29)
[2018-03-28] MEDS: LANSOPRAZOLE 15 MG TAB.RAP.DR PO SCH (05:53)
[2018-03-28] MEDS: OXYCODONE HCL IR 5 MG TABLET PO PRN ×3 (05:54→18:31)
[2018-03-28] MEDS: OXYCODONE-ACETAMINOPHEN 5-325 MG TABLET PO PRN ×3 (05:56→18:31)
[2018-03-28] MEDS: ASPIRIN 81 MG TABLET, ENT COATED PO SCH (09:08)
[2018-03-28] MEDS: FLUTICASONE/SALMETEROL DISKUS 250-50 MCG/DOSE IH SCH ×2 (09:08→21:53)
[2018-03-28] MEDS: CARVEDILOL 3.125 MG TABLET PO SCH ×2 (09:09→21:43)
[2018-03-28] MEDS: CITALOPRAM HYDROBROMIDE 20 MG TABLET PO SCH (09:09)
[2018-03-28] MEDS: DOCUSATE SODIUM 100 MG CAPSULE PO SCH ×2 (09:09→17:29)
[2018-03-28] MEDS: TAMSULOSIN HCL 0.4 MG CAP.SR.24H PO SCH (09:09)
[2018-03-28] MEDS: FERROUS SULFATE 325 MG TABLET PO SCH (09:09)
[2018-03-28] MEDS: FOLIC ACID 1 MG TABLET PO SCH (09:09)
[2018-03-28] MEDS: ESCITALOPRAM OXALATE 10 MG TABLET PO SCH (09:09)
[2018-03-28] MEDS: MULTIVITAMIN TABLET PO SCH (09:10)
[2018-03-28] MEDS: ASCORBIC ACID 500 MG TABLET PO SCH ×2 (09:10→21:44)
[2018-03-28] MEDS: THIAMINE HCL 100 MG TABLET PO SCH (09:10)
[2018-03-28] MEDS: LIDOCAINE 5% (700 MG) TRANSDERMAL ADH..PATCH TP SCH (09:10)
[2018-03-28] MEDS: POLYETHYLENE GLYCOL 3350 POWDER 17 GM/1 PACKET PO SCH (09:10)
[2018-03-28] MEDS: BUPROPION HCL 75 MG TABLET PO SCH ×2 (09:11→21:44)
[2018-03-28] MEDS: CARBIDOPA/LEVODOPA 25-100 MG TABLET PO SCH ×2 (13:35→21:44)
--- NOTE | 2018-03-28 16:20 | PDOC PROGRESS REPORT ---
Subjective Progress Note for:: 03/28/18 Subjective:: The patient is a 77-year-old male with a past medical history of cerebellar ataxia, peripheral neuropathy, hiatal hernia, arthritis, right side TKA, depression, PTSD and iron deficiency anemia who was admitted on 03/18/18 for pulmonary contusion secondary to a fall. Patient of Dr. Coleman. The patient was seen on morning rounds with his present. He is found sitting upright in bed, comfortably, on room air. He tells me that he is feeling well today. He does complain of continued difficulty with ambulation and intention tremor related to his cerebellar ataxia. He asks if there is a medication that he may trial while waiting to follow-up with neurology as an outpatient. He is very pleased with his ability to use the incentive spirometer today and tells me that he has been attempting it 15 times an hour while awake to prevent pneumonia. Overall, he reports that his chest wall pain and dyspnea are much improved. He is looking forward to discharge to SNF for short-term rehabilitation. He has no other questions or concerns at this time. No concerns per nursing. Reason For Visit: PULMONARY HEMORRHAGE,FALLS,RECENT DIAGNOSIS OF Physical Exam Vital Signs: Temp Pulse Resp BP Pulse Ox 98.1 F 94 18 139/87 H 97 03/28/18 14:47 03/28/18 14:47 03/28/18 14:47 03/28/18 14:47 03/28/18 14:47 Intake & Output 03/27/18 03/28/18 03/29/18 06:59 06:59 06:59 Intake Total 1860 4240 350 Output Total 1700 1075 400 Balance 160 3165 -50 Weight 88.2 kg 84.8 kg General appearance: PRESENT: no acute distress, cooperative, well-developed, well-nourished Head exam: PRESENT: atraumatic, normocephalic Eye exam: PRESENT: conjunctiva pink, EOMI, PERRLA. ABSENT: scleral icterus Ear exam: PRESENT: normal external ear exam Mouth exam: PRESENT: moist, tongue midline Neck exam: ABSENT: carotid bruit, JVD, lymphadenopathy, thyromegaly Respiratory exam: PRESENT: clear to auscultation alyssa, symmetrical, unlabored. ABSENT: rales, rhonchi, wheezes Cardiovascular exam: PRESENT: RRR, +S1, +S2. ABSENT: diastolic murmur, rubs, systolic murmur Pulses: PRESENT: normal dorsalis pedis pul Vascular exam: PRESENT: normal capillary refill GI/Abdominal exam: PRESENT: normal bowel sounds, soft. ABSENT: distended, guarding, mass, organolmegaly, rebound, tenderness Rectal exam: PRESENT: deferred Extremities exam: PRESENT: full ROM. ABSENT: calf tenderness, clubbing, pedal edema Musculoskeletal exam: PRESENT: ambulatory - With front wheeled walker Neurological exam: PRESENT: alert, awake, oriented to person, oriented to place , oriented to time, oriented to situation, CN II-XII grossly intact, other - Persistent bilateral lower extremity and trunk tremor; resembling restless legs. Patient does have a resting hand tremor that worsened substantially with intention.. ABSENT: motor sensory deficit Psychiatric exam: PRESENT: appropriate affect, normal mood. ABSENT: homicidal ideation, suicidal ideation Skin exam: PRESENT: dry, intact, warm. ABSENT: cyanosis, rash Results Laboratory Results: 03/27/18 04:02 03/27/18 04:02 03/18/18 03/18/18 03/19/18 19:30 23:49 04:52 Creatine Kinase Troponin I < 0.012 < 0.012 < 0.012 NT-Pro-B Natriuret Pep 1700 H 03/19/18 03/27/18 04:52 04:02 Creatine Kinase 71 Troponin I NT-Pro-B Natriuret Pep 345 Impressions: Abdomen/Pelvis CT 03/18/18 14:44 IMPRESSION: Mild diverticulosis coli. Osseous findings as described. No acute findings in the abdomen or pelvis. Chest CT 03/18/18 14:44 IMPRESSION: Fairly diffuse patchy and confluent airspace densities are identified throughout the right lung and in the posterior sulcus on the left as noted above. Differential possibilities would include pulmonary edema versus pulmonary hemorrhage. The possibility of a developing ARDS type pattern cannot be excluded. Clinical correlation is recommended. Other findings as noted above. Head CT 03/20/18 00:00 IMPRESSION: Chronic ischemic changes. EVIDENCE OF ACUTE STROKE: NO. Chest X-Ray 03/20/18 06:00 IMPRESSION: No significant change in diffuse interstitial infiltrate throughout the right lung and at the left lung base. Assessment & Plan - Diagnosis (1) Chest wall contusion Qualifiers: Encounter type: initial encounter Laterality: left Qualified Code(s): S20.212A - Contusion of left front wall of thorax, initial encounter Is this a current diagnosis for this admission?: Yes Plan: The patient has a chest wall contusion, right rib fractures, and pulmonary contusion secondary to fall; likely related to his cerebellar ataxia and peripheral neuropathy. Lidoderm patches with as needed Tylenol and oxycodone for pain. Encourage mobility with assistance; fall precautions. Encourage incentive spirometry. (2) Cerebellar ataxia Is this a current diagnosis for this admission?: Yes Plan: History of cerebellar ataxia; chronic for the patient. Possibly related to history of previous EtOH dependence/abuse; continue multivitamin. Will add thiamine and folic acid. The patient does have a resting hand tremor that worsened significantly with intention; discussed the side effects of Sinemet. The patient and are interested in trying this medication to see if this assists with some of his tremor and ataxia. Plan to discharge to SNF for short-term rehabilitation; discharge planning has been consulted. May benefit from outpatient neurology follow-up. Fall precautions. (3) New onset a-fib Is this a current diagnosis for this admission?: Yes Plan: New onset A. fib. Echocardiogram reveals a normal LVEF with mild to moderate LVH, and mild diastolic dysfunction. Now rate controlled. Continue daily aspirin therapy. Continue low-dose carvedilol. Not a candidate for chronic anticoagulation as the patient is high risk for falls and has a current pulmonary contusion related to fall. (4) Peripheral neuropathy Qualifiers: Peripheral neuropathy type: polyneuropathy, alcohol-induced Qualified Code( s): G62.1 - Alcoholic polyneuropathy Is this a current diagnosis for this admission?: Yes Plan: We will continue patient's home dose gabapentin. (5) Rib fractures Qualifiers: Rib fracture type: multiple ribs Fracture type: closed Laterality: right Is this a current diagnosis for this admission?: Yes Plan: Secondary to fall and resulting in pulmonary contusion. As needed Tylenol and oxycodone for pain. We will trial Lidoderm patches. Incentive spirometry to bedside. Every 2 turns; encourage mobility. Out of bed for meals. (6) Pulmonary contusion Qualifiers: Encounter type: initial encounter Laterality: right Qualified Code(s): S27.321A - Contusion of lung, unilateral, initial encounter Is this a current diagnosis for this admission?: Yes Plan: Secondary to fall; multiple right rib fractures. Tylenol and oxycodone as needed for pain. Will trial Lidoderm patches. Supplemental oxygen as needed to maintain oxygen saturations greater than 90%. He has been successfully weaned to oxygen while awake and ambulating. Incentive spirometry to bedside. Xopenex nebulizer treatments as needed for shortness of breath. Every 2 turns, encouraged mobility, out of bed for meals. (7) Hypertension Qualifiers: Hypertension type: unspecified Qualified Code(s): I10 - Essential (primary ) hypertension Is this a current diagnosis for this admission?: Yes Plan: Have initiated low-dose carvedilol. - Time Time Spent with patient: 25-34 minutes Medications reviewed and adjusted accordingly: Yes Anticipated discharge: SNF - Short-term rehab Within: when bed available - Plan Summary Plan Summary: The patient is medically stable for discharge to SNF for short-term rehab.
[2018-03-28] MEDS: SIMVASTATIN 10 MG TABLET PO SCH (21:43)
[2018-03-28] MEDS: ARIPIPRAZOLE 5 MG TABLET PO SCH (21:44)
[2018-03-28] MEDS: PHARMACY COMMUNICATION ORDER MC SCH (21:46)
[2018-03-28] MEDS ORDERED: PHARMACY COMMUNICATION ORDER MC SCH (22:00)
[2018-03-29] MEDS: OXYCODONE HCL IR 5 MG TABLET PO PRN ×3 (01:33→21:49)
[2018-03-29] MEDS: OXYCODONE-ACETAMINOPHEN 5-325 MG TABLET PO PRN ×3 (01:34→21:50)
[2018-03-29] MEDS: GABAPENTIN 300 MG CAPSULE PO SCH ×4 (01:34→17:27)
[2018-03-29] MEDS: LANSOPRAZOLE 15 MG TAB.RAP.DR PO SCH (06:42)
[2018-03-29] MEDS: CARBIDOPA/LEVODOPA 25-100 MG TABLET PO SCH ×3 (06:42→21:37)
[2018-03-29] MEDS: POLYETHYLENE GLYCOL 3350 POWDER 17 GM/1 PACKET PO SCH (09:02)
[2018-03-29] MEDS: LIDOCAINE 5% (700 MG) TRANSDERMAL ADH..PATCH TP SCH (09:02)
[2018-03-29] MEDS: DOCUSATE SODIUM 100 MG CAPSULE PO SCH ×2 (09:03→17:27)
[2018-03-29] MEDS: CITALOPRAM HYDROBROMIDE 20 MG TABLET PO SCH (09:03)
[2018-03-29] MEDS: ASPIRIN 81 MG TABLET, ENT COATED PO SCH (09:03)
[2018-03-29] MEDS: FLUTICASONE/SALMETEROL DISKUS 250-50 MCG/DOSE IH SCH ×2 (09:03→21:38)
[2018-03-29] MEDS: FERROUS SULFATE 325 MG TABLET PO SCH (09:04)
[2018-03-29] MEDS: TAMSULOSIN HCL 0.4 MG CAP.SR.24H PO SCH (09:04)
[2018-03-29] MEDS: FOLIC ACID 1 MG TABLET PO SCH (09:04)
[2018-03-29] MEDS: CARVEDILOL 3.125 MG TABLET PO SCH ×2 (09:04→21:37)
[2018-03-29] MEDS: BUPROPION HCL 75 MG TABLET PO SCH ×2 (09:05→21:35)
[2018-03-29] MEDS: MULTIVITAMIN TABLET PO SCH (09:05)
[2018-03-29] MEDS: THIAMINE HCL 100 MG TABLET PO SCH (09:05)
[2018-03-29] MEDS: ASCORBIC ACID 500 MG TABLET PO SCH ×2 (09:05→21:36)
[2018-03-29] MEDS: ESCITALOPRAM OXALATE 10 MG TABLET PO SCH (09:05)
--- NOTE | 2018-03-29 11:36 | PDOC TRANSFER SUMMARY ---
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 Administered thiamine and folic acid. The patient does have a resting hand tremor that worsened significantly with intention; discussed the side effects of Sinemet. The patient and are interested in trying this medication to see if this assists with some of his tremor and ataxia. Continue post-discharge. May benefit from outpatient neurology follow-up. (2) Chest wall contusion Is this a current diagnosis for this admission?: Yes Diagnosis Summary: The patient has a chest wall contusion, right rib fractures, and pulmonary contusion secondary to fall; likely related to his cerebellar ataxia and peripheral neuropathy. Lidoderm patches with as needed Tylenol for pain. Encourage mobility with assistance; fall precautions. Encourage incentive spirometry. (3) New onset a-fib Is this a current diagnosis for this admission?: Yes Diagnosis Summary: New onset A. fib. Now rate controlled. Echocardiogram reveals a normal LVEF with mild to moderate LVH, and mild diastolic dysfunction. Continue daily aspirin therapy and low-dose carvedilol. Not a candidate for chronic anticoagulation as the patient is high risk for falls and has a current pulmonary contusion related to fall. (4) Hypertension Is this a current diagnosis for this admission?: Yes Diagnosis Summary: low dose carvedilol (5) Peripheral neuropathy Is this a current diagnosis for this admission?: Yes Diagnosis Summary: Home dose gabapentin (6) Pulmonary contusion Is this a current diagnosis for this admission?: Yes Diagnosis Summary: Secondary to fall; multiple right rib fractures. Tylenol as needed for pain and/or Lidoderm patches. Weaned from nasal cannula to room air for > 24hrs Incentive spirometry to bedside. Xopenex nebulizer treatments as needed for shortness of breath. (7) Rib fractures Is this a current diagnosis for this admission?: Yes Diagnosis Summary: Secondary to fall; multiple right rib fractures. Tylenol as needed for pain and/or Lidoderm patches. Weaned from nasal cannula to room air for > 24hrs Incentive spirometry to bedside. Xopenex nebulizer treatments as needed for shortness of breath. - Transfer Medications Home Medications: Ascorbic Acid [Vitamin C 500 mg Tablet] 500 mg PO BID 03/18/18 Aspirin [Ecotrin 81 mg EC Tablet] 81 mg PO QAM 03/18/18 Ergocalciferol (Vitamin D2) [Vitamin D] 400 unit PO DAILY 03/18/18 Escitalopram Oxalate [Lexapro] 20 mg PO QPM 03/18/18 Fluticasone/Salmeterol [Advair 250-50 Diskus 28 dose] 1 inh IH BID 03/18/18 Gabapentin [Neurontin 300 mg Capsule] 600 mg PO Q8 03/18/18 Mirabegron [Myrbetriq] 50 mg PO DAILY 03/18/18 Multivitamin [Multiple Vitamins] 1 each PO DAILY 03/18/18 Omeprazole 20 mg PO QAM 03/18/18 Oxycodone HCl/Acetaminophen [Percocet 10-325 mg Tablet] 1 each PO Q6HP PRN 03/18 Vitamin E [Natural Vitamin E] 400 unit PO DAILY 03/18/18 Transfer Medications: Current Medications Acetaminophen (Tylenol 325 Mg Tablet) 650 mg PO Q4HP PRN PRN Reason: FOR PAIN OR TEMP Stop: 04/26/18 12:46 Albuterol (Ventolin 0.083% Neb 2.5 Mg/3 Ml Ampul) 2.5 mg NEB Q2HP PRN PRN Reason: FOR WHEEZING Stop: 04/17/18 18:22 Aripiprazole (Abilify 5 Mg Tablet) 20 mg PO QHS NIYAH Stop: 04/17/18 21:59 Last Admin: 03/28/18 21:44 Dose: 20 mg Ascorbic Acid (Vitamin C 500 Mg Tablet) 500 mg PO Q12 NIYAH Stop: 04/18/18 21:59 Last Admin: 03/29/18 09:05 Dose: 500 mg Aspirin (Ecotrin 81 Mg Ec Tablet) 81 mg PO QAM NIYAH Stop: 04/19/18 07:59 Last Admin: 03/29/18 09:03 Dose: 81 mg Bupropion HCl (Wellbutrin 75 Mg Tablet) 150 mg PO Q12 NIYAH Stop: 04/17/18 21:59 Last Admin: 03/29/18 09:05 Dose: 150 mg Carbidopa/Levodopa (Sinemet 25-100 Mg Tablet) 1 tab PO Q8 NIYAH Stop: 04/27/18 13:59 Last Admin: 03/29/18 06:42 Dose: 1 tab Carvedilol (Coreg 3.125 Mg Tablet) 3.125 mg PO Q12 NIYAH Stop: 04/26/18 21:59 Last Admin: 03/29/18 09:04 Dose: 3.125 mg Citalopram Hydrobromide (Celexa 20 Mg Tablet) 20 mg PO DAILY NIYAH Stop: 04/18/18 09:59 Last Admin: 03/29/18 09:03 Dose: 20 mg Docusate Sodium (Colace 100 Mg Capsule) 100 mg PO BID NIYAH Stop: 04/17/18 17:59 Last Admin: 03/29/18 09:03 Dose: 100 mg Escitalopram Oxalate (Lexapro 10 Mg Tablet) 20 mg PO DAILY NIYAH Stop: 04/19/18 09:59 Last Admin: 03/29/18 09:05 Dose: 20 mg Ferrous Sulfate (Feosol 325 Mg Tablet) 325 mg PO DAILY NIYAH Stop: 04/17/18 17:59 Last Admin: 03/29/18 09:04 Dose: 325 mg Folic Acid (Folvite 1 Mg Tablet) 1 mg PO DAILY NIYAH Stop: 04/27/18 09:59 Last Admin: 03/29/18 09:04 Dose: 1 mg Gabapentin (Neurontin 300 Mg Capsule) 600 mg PO Q6 NIYAH Stop: 04/23/18 11:59 Last Admin: 03/29/18 06:42 Dose: 600 mg Lansoprazole (Prevacid 15 Mg Odt Tablet) 15 mg PO Q6AM NIYAH Stop: 04/19/18 05:59 Last Admin: 03/29/18 06:42 Dose: 15 mg Levalbuterol HCl (Xopenex Neb 1.25 Mg/3 Ml Ampul) 1.25 mg NEB RTQ6HP PRN PRN Reason: SHORTNESS OF BREATH Stop: 04/26/18 12:53 Lidocaine (Lidoderm 5% (700 Mg) Transdermal Patch) 1 patch TP DAILY NIYAH Stop: 04/27/18 09:59 Last Admin: 03/29/18 09:02 Dose: 1 patch Multivitamins (Tab-A-Suad (Multiple Vitamin) Tablet) 1 tab PO DAILY NIYAH Stop: 04/19/18 09:59 Last Admin: 03/29/18 09:05 Dose: 1 tab Ondansetron HCl (Zofran Inj/Pf 4 Mg/2 Ml Sdv) 4 mg IV Q6HP PRN PRN Reason: FOR NAUSEA/VOMITING Stop: 04/18/18 14:58 Last Admin: 03/19/18 21:36 Dose: 4 mg Oxycodone HCl (Oxy-Ir 5 Mg Tablet) 5 mg PO Q6HP PRN PRN Reason: PAIN Stop: 04/02/18 23:03 Last Admin: 03/29/18 01:33 Dose: 5 mg Oxycodone/Acetaminophen (Percocet 5-325 Mg Tablet) 1 tab PO Q6HP PRN PRN Reason: PAIN Stop: 04/02/18 23:02 Last Admin: 03/29/18 01:34 Dose: 1 tab Patient Own Medication (Mirabegron [Myrbetriq]) 50 mg PO .DAILY NIYAH Stop: 04/18/18 18:59 Pharmacy Profile Note (Medication Communication Order) 1 each MC QHS NIYAH Stop: 04/27/18 21:59 Last Admin: 03/28/18 21:46 Dose: Not Given Polyethylene Glycol (Miralax Powder 17 Gm/Packet) 17 gm PO DAILY NIYAH Stop: 04/20/18 10:44 Last Admin: 03/29/18 09:02 Dose: 17 gm Fluticasone/Salmeterol (Advair 250-50 Diskus 14 Dose/Diskus) 1 inh IH Q12 NIYAH Stop: 04/17/18 21:59 Last Admin: 03/29/18 09:03 Dose: 1 inhaler Simvastatin (Zocor 10 Mg Tablet) 10 mg PO QHS NIYAH Stop: 04/17/18 21:59 Last Admin: 03/28/18 21:43 Dose: 10 mg Tamsulosin HCl (Flomax 0.4 Mg Cap.Sr) 0.4 mg PO DAILY NIYAH Stop: 04/17/18 17:59 Last Admin: 03/29/18 09:04 Dose: 0.4 mg Thiamine HCl (Thiamine 100 Mg Tablet) 100 mg PO DAILY NIYAH Stop: 04/27/18 09:59 Last Admin: 03/29/18 09:05 Dose: 100 mg - Allergies Allergies/Adverse Reactions: No Known Allergies Allergy (Verified 08/18/12 10:14) - Diet/Activity Discharge Diet: Cardiac Hospital Course Hospital Course: H&P 03/18/2018 WILSON ROSSI is a 77 year old male who carries a past medical history of cerebellar ataxia, probably due to his history of heavy alcohol use, although he has not used alcohol in many years, peripheral neuropathy probably from the same cause. He states that his balance has not been good for a long time, but that lately it has been worse. He also states that he has a recent history of bilateral pneumonia. He states that he thinks he has bronchitis now. He smokes "cigarillos". He states that he only smokes 2-3 of them a week. This week he states that he has fallen onto his left side twice both times falling on his right ribs. He complains of severe pleuritic chest pain and shortness of breath. He denies history of lung problems and states that he does not require oxygen at home. He also has had some problems with PTSD and depression. Lately the depression has been related to his medical problems and feeling that medical delivery driver are not being honest with him. The patient' s speech is very tangential and it is very difficult to understand. In the ED the patient is found to have new onset of atrial fibrillation that is rate controlled. CTA of the chest abdomen and pelvis were performed that demonstrated patchy interstitial opacities on the right side of the chest that is described as being either pulmonary edema or pulmonary hemorrhage/contusion. The patient is currently saturating 97% on 3 L. He does not use O2 at home. Patient of Dr. Coleman. Physical Exam Vital Signs: Temp Pulse Resp BP Pulse Ox 98.2 F 85 16 135/72 H 97 03/29/18 07:19 03/29/18 09:56 03/29/18 09:56 03/29/18 07:19 03/29/18 09:56 Intake & Output 03/28/18 03/29/18 03/30/18 06:59 06:59 06:59 Intake Total 4240 1850 Output Total 1075 1725 Balance 3165 125 Weight 84.8 kg Results Laboratory Results: 03/27/18 04:02 03/27/18 04:02 03/18/18 03/18/18 03/19/18 19:30 23:49 04:52 Creatine Kinase Troponin I < 0.012 < 0.012 < 0.012 NT-Pro-B Natriuret Pep 1700 H 03/19/18 03/27/18 04:52 04:02 Creatine Kinase 71 Troponin I NT-Pro-B Natriuret Pep 345 Impressions: Abdomen/Pelvis CT 03/18/18 14:44 IMPRESSION: Mild diverticulosis coli. Osseous findings as described. No acute findings in the abdomen or pelvis. Chest CT 03/18/18 14:44 IMPRESSION: Fairly diffuse patchy and confluent airspace densities are identified throughout the right lung and in the posterior sulcus on the left as noted above. Differential possibilities would include pulmonary edema versus pulmonary hemorrhage. The possibility of a developing ARDS type pattern cannot be excluded. Clinical correlation is recommended. Other findings as noted above. Head CT 03/20/18 00:00 IMPRESSION: Chronic ischemic changes. EVIDENCE OF ACUTE STROKE: NO. Chest X-Ray 03/20/18 06:00 IMPRESSION: No significant change in diffuse interstitial infiltrate throughout the right lung and at the left lung base. Status: Imported from PACS Plan Discharge Plan: DISCHARGE FROM [facility] TO SNF Time Spent: Less than 30 Minutes
[2018-03-29] MEDS: SIMVASTATIN 10 MG TABLET PO SCH (21:36)
[2018-03-29] MEDS: ARIPIPRAZOLE 5 MG TABLET PO SCH (21:37)
[2018-03-29] MEDS: PHARMACY COMMUNICATION ORDER MC SCH (23:46)
[2018-03-30] MEDS: GABAPENTIN 300 MG CAPSULE PO SCH ×4 (01:13→17:08)
[2018-03-30] MEDS: CARBIDOPA/LEVODOPA 25-100 MG TABLET PO SCH ×2 (05:49→13:45)
[2018-03-30] MEDS: LANSOPRAZOLE 15 MG TAB.RAP.DR PO SCH (05:49)
[2018-03-30] MEDS: OXYCODONE-ACETAMINOPHEN 5-325 MG TABLET PO PRN ×2 (05:49→12:01)
[2018-03-30] MEDS: OXYCODONE HCL IR 5 MG TABLET PO PRN ×2 (05:49→12:01)
[2018-03-30] MEDS: POLYETHYLENE GLYCOL 3350 POWDER 17 GM/1 PACKET PO SCH (10:38)
[2018-03-30] MEDS: ESCITALOPRAM OXALATE 10 MG TABLET PO SCH (10:38)
[2018-03-30] MEDS: CARVEDILOL 3.125 MG TABLET PO SCH (10:39)
[2018-03-30] MEDS: ASCORBIC ACID 500 MG TABLET PO SCH (10:39)
[2018-03-30] MEDS: DOCUSATE SODIUM 100 MG CAPSULE PO SCH ×2 (10:39→17:09)
[2018-03-30] MEDS: FERROUS SULFATE 325 MG TABLET PO SCH (10:39)
[2018-03-30] MEDS: THIAMINE HCL 100 MG TABLET PO SCH (10:39)
[2018-03-30] MEDS: BUPROPION HCL 75 MG TABLET PO SCH (10:39)
[2018-03-30] MEDS: MULTIVITAMIN TABLET PO SCH (10:39)
[2018-03-30] MEDS: FOLIC ACID 1 MG TABLET PO SCH (10:43)
[2018-03-30] MEDS: CITALOPRAM HYDROBROMIDE 20 MG TABLET PO SCH (10:43)
[2018-03-30] MEDS: FLUTICASONE/SALMETEROL DISKUS 250-50 MCG/DOSE IH SCH (10:43)
[2018-03-30] MEDS: LIDOCAINE 5% (700 MG) TRANSDERMAL ADH..PATCH TP SCH (10:46)
[2018-03-30] MEDS: ASPIRIN 81 MG TABLET, ENT COATED PO SCH (10:46)
[2018-03-30] MEDS: TAMSULOSIN HCL 0.4 MG CAP.SR.24H PO SCH (10:59)
[2018-03-30 17:23] VITALS: BP 135/72
== END 2018-03-30 17:37 | disposition home or self-care (01) | DRG 57 ==
LOC: ER 11:37 → EH 18:17 → 3N 21:55 → 3W 03-23 17:37
PROVIDERS: ADMIT Internal Medicine; ATTEND Internal Medicine
DX: G31.2 Degeneration of nervous system due to alcohol (principal); S27.321A Contusion of lung, unilateral, initial encounter; S20.212A Contusion of left front wall of thorax, initial encounter; F10.21 Alcohol dependence, in remission; W19.XXXA Unspecified fall, initial encounter; I48.91 Unspecified atrial fibrillation; S22.41XD Multiple fractures of ribs, right side, subsequent encounter for fracture with routine healing; G62.1 Alcoholic polyneuropathy; J40 Bronchitis, not specified as acute or chronic; I10 Essential (primary) hypertension; F32.9 Major depressive disorder, single episode, unspecified; F43.10 Post-traumatic stress disorder, unspecified; Z79.82 Long term (current) use of aspirin; Z79.899 Other long term (current) drug therapy; Z96.651 Presence of right artificial knee joint; F17.290 Nicotine dependence, other tobacco product, uncomplicated
CPT/HCPCS: 36415; 70450; 71045; 71260; 74177; 80048; 80053; 81001; 82550; 82553; 83735; 83880; 84439; 84443; 84481; 84484; 85025; 85610; 85730; 87040; 87070; 87205; 93005; 93010; 93306; 94799; 96365; 96375; 99285; G8978-GP; G8979-GP; G8987-GO; G8988-GO; G8989-GO; J0696; J2270; J2405; J3490; J7030; J7120

== ENCOUNTER 2019-12-21 12:21 | Emergency (ER) | payer MEDICARE, OTHER ==
--- NOTE | 2019-12-21 13:04 | ER Document Report ---
ED Medical Screen (RME) - General Chief Complaint: Vomiting Stated Complaint: VOMITING BLOOD Time Seen by Provider: 12/21/19 12:59 Mode of Arrival: Ambulatory Information source: Patient Notes: 79-year-old male presented to ED for spitting up blood since last night. He states he has not coughing he just hacks and then spits out blood. He states he spit out a lot of blood last night. He states he cerebellum ataxia and neuropathy. He has multiple other medical conditions. He states he called this morning and he was told to come straight over to the emergency room. He is alert oriented speaking in full sentences he does walk with a walker. He states he does not smoke drink alcohol or use any illicit drugs. [facility]. He denies any other Covid symptoms. He states he does fall frequently and he fell last week and has had pain in his rib area since last week. I have greeted and performed a rapid initial assessment of this patient. A comprehensive ED assessment and evaluation of the patient, analysis of test results and completion of medical decision making process will be conducted by an additional ED providers. TRAVEL OUTSIDE OF THE [place] IN LAST 30 DAYS: No - Related Data Allergies/Adverse Reactions: No Known Allergies Allergy (Verified 08/18/12 10:14) Past Medical History - Past Medical History Cardiac Medical History: Reports: Hx Hypercholesterolemia Denies: Hx Heart Attack, Hx Hypertension Pulmonary Medical History: Reports: Hx Bronchitis, Hx Pneumonia Denies: Hx Asthma Neurological Medical History: Denies: Hx Cerebrovascular Accident, Hx Seizures Renal/ Medical History: Denies: Hx Peritoneal Dialysis GI Medical History: Reports: Hx Hiatal Hernia. Denies: Hx Hepatitis, Hx Ulcer Musculoskeltal Medical History: Reports Hx Arthritis - Right sided TKA. Psychiatric Medical History: Reports: Hx Depression, Hx Post Traumatic Stress Disorder Infectious Medical History: Denies: Hx Hepatitis Past Surgical History: Reports: Hx Orthopedic Surgery. Denies: Hx Open Heart Surgery, Hx Pacemaker Physical Exam - Vital signs Vitals: Temp Pulse Resp BP Pulse Ox 98.3 F 71 18 115/50 L 95 12/21/19 12:45 12/21/19 12:45 12/21/19 12:45 12/21/19 12:45 12/21/19 12:45 Course - Vital Signs Vital signs: Temp Pulse Resp BP Pulse Ox 98.3 F 71 18 115/50 L 95 12/21/19 12:45 12/21/19 12:45 12/21/19 12:45 12/21/19 12:45 12/21/19 12:45
--- NOTE | 2019-12-21 13:29 | ER Document Report ---
ED General - General Chief Complaint: Nausea/Vomiting Stated Complaint: VOMITING BLOOD Time Seen by Provider: 12/21/19 12:59 Primary Care Provider: JAIME CHOWDARY MD [Primary Care Provider] - Follow up as needed Mode of Arrival: Ambulatory Notes: 79-year-old male presents with either coughing or vomiting blood. Last 2 days. Is not sure but if I forced him to decide he thinks maybe it is vomiting with retching. No cough no shortness of breath no chest pain except on the back, bilateral ribs from where he fell several weeks ago. He has a history of cerebellar ataxia walks with a walker and has frequent falls. TRAVEL OUTSIDE OF THE [place] IN LAST 30 DAYS: No - Related Data Allergies/Adverse Reactions: No Known Allergies Allergy (Verified 08/18/12 10:14) Past Medical History - General Information source: Patient - Social History Smoking Status: Never Smoker Family History: Reviewed & Not Pertinent Patient has homicidal ideation: No - Past Medical History Cardiac Medical History: Reports: Hx Hypercholesterolemia Denies: Hx Heart Attack, Hx Hypertension Pulmonary Medical History: Reports: Hx Bronchitis, Hx Pneumonia Denies: Hx Asthma Neurological Medical History: Denies: Hx Cerebrovascular Accident, Hx Seizures Renal/ Medical History: Denies: Hx Peritoneal Dialysis GI Medical History: Reports: Hx Hiatal Hernia. Denies: Hx Hepatitis, Hx Ulcer Musculoskeletal Medical History: Reports Hx Arthritis - Right sided TKA. Psychiatric Medical History: Reports: Hx Depression, Hx Post Traumatic Stress Disorder Infectious Medical History: Denies: Hx Hepatitis Past Surgical History: Reports: Hx Orthopedic Surgery. Denies: Hx Open Heart Surgery, Hx Pacemaker Review of Systems - Review of Systems Notes: REVIEW OF SYSTEMS GEN: Denies fever, chills, weight loss ENT: Denies sore throat, nasal discharge, ear pain EYES: Denies blurry vision, eye pain, discharge CV: Denies chest pain, palpitations, edema RESP: Blood? GI: Vomiting blood? MSK: Denies joint pain/swelling, edema, SKIN: Denies rash, skin lesions LYMPH: Denies swollen glands/lymph nodes NEURO: Denies headache, focal weakness or numbness, dizziness PSYCH: Denies depression, suicidal or homicidal ideation PHYSICAL EXAMINATION General: No acute distress, well-nourished Head: Atraumatic, normocephalic ENT: Mouth normal, oropharynx moist, no exudates or tonsillar enlargement Eyes: Conjunctiva normal, pupils equal, lids normal Neck: No JVD, supple, no guarding CVS: Normal rate, regular rhythm, no murmurs Resp: No resp distress, equal and normal breath sounds bilaterally she is h olding a vial which contains either coffee-ground emesis or bloody sputumunclear which GI: Nondistended, soft, no tenderness to palpation, no rebound or guarding Ext: No deformities, no edema, normal range of motion in upper and lower ext Back: No CVA or midline TTP Skin: No rash, warm Lymphatic: No lymphadeopathy noted Neuro: Lower extremities, baseline. Physical Exam - Vital signs Vitals: Temp Pulse Resp BP Pulse Ox 98.3 F 71 18 115/50 L 95 12/21/19 12:45 12/21/19 12:45 12/21/19 12:45 12/21/19 12:45 12/21/19 12:45 Course - Re-evaluation Re-evalutation: 12/21/19 15:33 Presents with likely mild hemoptysis. Has had multiple falls but has no tenderness today and no acute signs of chest trauma No fever no change in respiratory status normal vitals Labs: My leukocytosis Imaging: Chest negative CT chest shows "right middle and lower lobe pneumonia" In looking at his old CT there is the same area that he had "pulmonary hemorrhage" last time and seen the rib fractures In looking at his CT today is no acute rib fractures and he has no tenderness throughout chest palpation. He is in no distress. I think he probably may be having aspiration or chronic lung disease and will need to see a senior telecommunications engineer but clinically he looks well, wants to go home and is stable for outpatient antibiotics. I have discussed with the patient there likely diagnosis, aftercare plan, follow-up plans and my usual and customary return precautions. They verbalized understanding of this. - Vital Signs Vital signs: Temp Pulse Resp BP Pulse Ox 98.3 F 71 18 115/50 L 95 12/21/19 13:00 12/21/19 12:45 12/21/19 12:45 12/21/19 12:45 12/21/19 12:45 - Laboratory Result Diagrams: 12/21/19 14:05 12/21/19 14:05 Laboratory results interpreted by me: 12/21/19 12/21/19 12/21/19 14:05 14:05 14:05 WBC 14.5 H RBC 3.67 L Hgb 12.0 L Hct 35.2 L RDW 14.3 H Absolute Neuts (auto) 11.5 H Seg Neutrophils % 79.0 H BUN 24 H Total Bilirubin 2.1 H Urine Protein 30 H Urine Ketones 20 H Urine Urobilinogen 2.0 H Urine Ascorbic Acid 40 H - Diagnostic Test Radiology reviewed: Image reviewed, Reports reviewed Discharge - Discharge Clinical Impression: Right middle lobe pneumonia Qualifiers: Pneumonia type: due to unspecified organism Qualified Code(s): J18.9 - Pneumonia, unspecified organism Condition: Good Disposition: HOME, SELF-CARE Instructions: Pneumonia ([facility]) Additional Instructions: Your CAT scan showed a possible pneumoniathat said, there was a similar appearance to a CAT scan several months ago. I would like you to see a lung specialist. Please talk to your regular doctor about referring you. If you are developing any worsening shortness of breath coughing up more blood please return to the ER immediately. Prescriptions: Doxycycline Hyclate 100 mg PO BID #20 tablet. Referrals: JAIME CHOWDARY MD [Primary Care Provider] - Follow up in 3-5 days
--- NOTE | 2019-12-21 13:54 | RADIOLOGY REPORT (SQ) ---
EXAM DESCRIPTION: CHEST SINGLE VIEW IMAGES COMPLETED DATE/TIME: 12/21/2019 12:27 pm REASON FOR STUDY: Hemoptyses COMPARISON: 03/20/2018 EXAM PARAMETERS: NUMBER OF VIEWS: One view. TECHNIQUE: Single frontal radiographic view of the chest acquired. RADIATION DOSE: NA LIMITATIONS: None. FINDINGS: LUNGS AND PLEURA: No opacities, masses or pneumothorax. No pleural effusion. MEDIASTINUM AND HILAR STRUCTURES: No masses. Contour normal. HEART AND VASCULAR STRUCTURES: Heart normal in size. Normal vasculature. BONES: No acute findings. HARDWARE: None in the chest. OTHER: No other significant finding. IMPRESSION: NO ACUTE RADIOGRAPHIC FINDING IN THE CHEST. TECHNICAL DOCUMENTATION: JOB ID: [id number] 2010 [employer]- All Rights Reserved Reading location - IP/workstation name: [email or web address]
[2019-12-21 14:17] LABS: ABSOLUTE EOSINOPHILS # (AUTO) 0.2 10^3/uL (0.0-0.6); ABSOLUTE LYMPHOCYTES (AUTO) 2.2 10^3/uL (0.5-4.7); ABSOLUTE MONOCYTES (AUTO) 0.7 10^3/uL (0.1-1.4); ABSOLUTE NEUT (AUTO) 11.5 10^3/uL (1.7-8.2); BASOPHILS % (AUTO) 0.2 % (0-2); EOSINOPHILS % (AUTO) 1.1 % (0-6); HEMATOCRIT 35.2 % (37.9-51.0); MEAN CORPUSCULAR HEMOGLOBIN 32.7 pg (27.0-33.4); MEAN CORPUSCULAR HGB CONC 34.1 g/dL (32.0-36.0); MEAN CORPUSCULAR VOLUME 96 fl (80-97); MONOCYTES % (AUTO) 4.7 % (3-13); PLATELET COUNT 174 10^3/uL (150-450); RED BLOOD COUNT 3.67 10^6/uL (4.35-5.55); RED CELL DISTRIBUTION WIDTH 14.3 % (11.5-14.0); TOTAL CELLS COUNTED % (AUTO) 100 %; WHITE BLOOD COUNT 14.5 10^3/uL (4.0-10.5)
[2019-12-21 14:25] LABS: APPEARANCE,URINE SLIGHTLY-CLOUDY; BILIRUBIN,URINE NEGATIVE (NEGATIVE); COLOR,URINE DARK YELLOW; GLUCOSE, URINE NEGATIVE (NEGATIVE); KETONES,URINE 20 mg/dL (NEGATIVE); LEUKOCYTE ESTERASE,URINE NEGATIVE (NEGATIVE); NITRITE,URINE NEGATIVE (NEGATIVE); PROTEIN,URINE 30 mg/dL (NEGATIVE)
[2019-12-21 14:36] LABS: ALBUMIN 4.1 g/dL (3.5-5.0); ALKALINE PHOSPHATASE 66 U/L (38-126); ANION GAP 7 (5-19); ASPARTATE AMINO TRANSFERASE 28 U/L (17-59); BILIRUBIN,TOTAL 2.1 mg/dL (0.2-1.3); BLOOD UREA NITROGEN 24 mg/dL (7-20); CALCIUM 9.2 mg/dL (8.4-10.2); CARBON DIOXIDE 29 mmol/L (22-30); CHLORIDE 103 mmol/L (98-107); GLUCOSE 98 mg/dL (75-110); POTASSIUM 4.4 mmol/L (3.6-5.0)
--- NOTE | 2019-12-21 15:14 | RADIOLOGY REPORT (SQ) ---
EXAM DESCRIPTION: CTA CHEST IMAGES COMPLETED DATE/TIME: 12/21/2019 2:59 pm REASON FOR STUDY: hemoptysis COMPARISON: 03/18/2018 TECHNIQUE: CT scan of the chest performed using helical scanning technique with dynamic intravenous contrast injection. Images reviewed with lung, soft tissue and bone windows. Reconstructed coronal and sagittal MPR and MIP images reviewed. All images stored on PACS. All CT scanners at this facility use dose modulation, iterative reconstruction, and/or weight based d osing when appropriate to reduce radiation dose to as low as reasonably achievable (ALARA). [facility]: Dose Right [facility]: CareDose [facility]: Dose Right [facility]: Teradose 4D [facility]: [employer] RENAL FUNCTION: GFR > 60. RADIATION DOSE: CT Rad equipment meets quality standard of care and radiation dose reduction techniq ues were employed. CTDIvol: 14.1 - 14.9 mGy. DLP: 661 mGy-cm. . LIMITATIONS: None. FINDINGS: LUNGS AND PLEURA: Segmental airspace disease in the medial segment of the middle lobe and in the right lower lobe. The left lung is clear. No effusions. HILAR AND MEDIASTINAL STRUCTURES: No identified masses or abnormal nodes. HEART AND VASCULAR STRUCTURES: No aneurysm or dissection. No central pulmonary emboli. No pericardi al effusion. HARDWARE: None in the chest. UPPER ABDOMEN: No significant findings. Limited exam. THYROID AND OTHER SOFT TISSUES: No masses. No adenopathy. BONES: Old right rib fractures. OTHER: No other significant finding. IMPRESSION: Right middle and lower lobe pneumonia. TECHNICAL DOCUMENTATION: JOB ID: [id number] Quality ID # [id number]: Final reports with documentation of one or more dose reduction techniques (e.g., Au tomated exposure control, adjustment of the mA and/or kV according to patient size, use of iterative reconstruction technique) 2010 [employer]- All Rights Reserved Reading location - IP/workstation name: [email or web address]
[2019-12-21 15:56] VITALS: BP 132/84
== END 2019-12-21 15:53 | disposition home or self-care (01) ==
LOC: ER 12:21
DX: J18.9 Pneumonia, unspecified organism (principal); R11.2 Nausea with vomiting, unspecified; R04.2 Hemoptysis; G11.9 Hereditary ataxia, unspecified
CPT/HCPCS: 36415; 71045; 71275; 80053; 81001; 83690; 85025; 86850; 86900; 86901; 87086; 99284

== ENCOUNTER → 2020-05-20 | Outpatient (CLI) | payer MEDICARE, OTHER ==
--- NOTE | 2020-05-20 13:34 | RADIOLOGY REPORT (SQ) ---
EXAM DESCRIPTION: CTA CHEST IMAGES COMPLETED DATE/TIME: 05/20/2020 9:34 am REASON FOR STUDY: R04.2 HEMOPTYSIS R04.2 HEMOPTYSIS COMPARISON: 12/21/2019 TECHNIQUE: CT scan of the chest performed using helical scanning technique with dynamic intravenous contrast injection. Images reviewed with lung, soft tissue and bone windows. Reconstructed coronal and sagittal MPR images reviewed. Additional 3 dimensional post-processing performed to develop Maximal Intensity Projection images (TN P). All images stored on PACS. All CT scanners at this facility use dose modulation, iterative reconstruction, and/or weight based d osing when appropriate to reduce radiation dose to as low as reasonably achievable (ALARA). [facility]: Dose Right [facility]: CareDose [facility]: Dose Right [facility]: Teradose 4D [facility]: [employer] CONTRAST TYPE AND DOSE: contrast/concentration: Isovue 350.00 mmol/ml; Total Contrast Delivered: 65. 0 ml; Total Saline Delivered: 70.0 ml Contrast bolus adequate for pulmonary arteries and aorta. RENAL FUNCTION: Creatinine 1 RADIATION DOSE: CT Rad equipment meets quality standard of care and radiation dose reduction techniq ues were employed. CTDIvol: 9.9 - 28.0 mGy. DLP: 987 mGy-cm. . LIMITATIONS: None. FINDINGS: LUNGS AND PLEURA: There is a stable small perifissural nodule on the right. There is very faintly defined opacification in the right middle lobe with somewhat of a tree-in-bud appearance. N o significant consolidation is seen. No pleural effusion is seen. AORTA AND GREAT VESSELS: No aneurysm. No dissection. HEART: No pericardial effusion. Moderate to marked coronary artery calcifications. PULMONARY ARTERIES: No emboli visualized in the main pulmonary arteries or the segmental branches. HILAR AND MEDIASTINAL STRUCTURES: There are scattered small shotty nonspecific mediastinal nodes. HARDWARE: None in the chest. UPPER ABDOMEN: No significant findings. Limited exam. THYROID AND OTHER SOFT TISSUES: No masses. No adenopathy. BONES: No acute or significant finding. 3D MIPS: Confirm above findings. OTHER: No other significant finding. IMPRESSION: 1. There is no pulmonary embolus. There is no aortic aneurysm or dissection. 2. There is faintly defined opacification in the right middle lobe. Cannot exclude an early infecti ous/ inflammatory process. COMMENT: Quality ID # [id number]: Final reports with documentation of one or more dose reduction techniques (e.g., Automated exposure control, adjustment of the mA and/or kV according to patient size, use of iterative reconstruction technique) TECHNICAL DOCUMENTATION: JOB ID: [id number] 2010 [employer]- All Rights Reserved Reading location - IP/workstation name: [email or web address]
== END ==
LOC: RAD 08:51
PROVIDERS: ATTEND Internal Medicine Pulmonary Disease
DX: R04.2 Hemoptysis (principal)
CPT/HCPCS: 71275; 82565